=== PATIENT | male | born 1930 | race Caucasian/White ===

== ENCOUNTER → 2017-05-05 | Outpatient (CLI) | payer MEDICARE, OTHER ==
--- NOTE | 2017-05-05 16:00 | RADIOLOGY REPORT (SQ) ---
EXAM DESCRIPTION: KNEE RIGHT 2 VIEWS COMPLETED DATE/TIME: 05/05/2017 11:08 am REASON FOR STUDY: EFFUSION, RIGHT KNEE M25.461 EFFUSION, RIGHT KNEE COMPARISON: None. NUMBER OF VIEWS: Two views. TECHNIQUE: AP and lateral radiographic images acquired of the right knee. LIMITATIONS: None. FINDINGS: MINERALIZATION: Normal. BONES: No acute fracture or dislocation. No worrisome bone lesions. Hardware in the femur. Joint spa ce narrowing, most pronounced in the patellofemoral joint. JOINT: No effusion. No chondrocalcinosis. OTHER: No other significant finding. IMPRESSION: DEGENERATIVE CHANGES, PARTICULARLY IN THE PATELLOFEMORAL JOINT. NO ACUTE FINDINGS. TECHNICAL DOCUMENTATION: JOB ID: [id number] [employer]- All Rights Reserved
== END ==
LOC: OD 10:32
PROVIDERS: ATTEND Internal Medicine
DX: M25.461 Effusion, right knee (principal)

== ENCOUNTER → 2017-06-09 | Outpatient (CLI) | payer MEDICARE, OTHER ==
[2017-06-09 13:40] LABS: ANION GAP 9 (5-19); BLOOD UREA NITROGEN 21 mg/dL (7-20); C-REACTIVE PROTEIN 22.5 mg/L (<10.0); CALCIUM 8.9 mg/dL (8.4-10.2); CARBON DIOXIDE 19 mmol/L (22-30); CHLORIDE 111 mmol/L (98-107); GLUCOSE 95 mg/dL (75-110); POTASSIUM 4.6 mmol/L (3.6-5.0); SODIUM 139.4 mmol/L (137-145)
== END ==
LOC: OD 12:00
PROVIDERS: ATTEND Orthopaedic Surgery
DX: T84.53XD Infection and inflammatory reaction due to internal right knee prosthesis, subsequent encounter (principal)
CPT/HCPCS: 36415; 80048; 85652; 86140; 87070; 87075; 87077; 87205

== ENCOUNTER 2017-06-24 07:14 | Observation (INO) | payer MEDICARE, OTHER ==
[2017-06-17 11:40] LABS: APPEARANCE,URINE SLIGHTLY-CLOUDY; BILIRUBIN,URINE NEGATIVE (NEGATIVE); GLUCOSE, URINE NEGATIVE (NEGATIVE); KETONES,URINE NEGATIVE (NEGATIVE); LEUKOCYTE ESTERASE,URINE NEGATIVE (NEGATIVE); NITRITE,URINE NEGATIVE (NEGATIVE); PROTEIN,URINE NEGATIVE (NEGATIVE); URINE SPECIFIC GRAVITY 1.027
[2017-06-17 11:41] LABS: COLOR,URINE YELLOW
[2017-06-17 12:25] LABS: ABSOLUTE BASOPHILS # (AUTO) 0.1 10^3/uL (0.0-0.2); ABSOLUTE EOSINOPHILS # (AUTO) 0.6 10^3/uL (0.0-0.6); ABSOLUTE NEUT (AUTO) 8.4 10^3/uL (1.7-8.2); BASOPHILS % (AUTO) 0.5 % (0-2); EOSINOPHILS % (AUTO) 4.5 % (0-6); HEMATOCRIT 33.9 % (37.9-51.0); HEMOGLOBIN 10.8 g/dL (13.5-17.0); LYMPHOCYTES % (AUTO) 28.5 % (13-45); MEAN CORPUSCULAR HEMOGLOBIN 28.9 pg (27.0-33.4); MEAN CORPUSCULAR VOLUME 90 fl (80-97); PLATELET COUNT 198 10^3/uL (150-450); RED BLOOD COUNT 3.75 10^6/uL (4.35-5.55); RED CELL DISTRIBUTION WIDTH 15.8 % (11.5-14.0); SEGMENTED NEUTROPHILS % (AUTO) 59.5 % (42-78); TOTAL CELLS COUNTED % (AUTO) 100 %; WHITE BLOOD COUNT 14.2 10^3/uL (4.0-10.5)
[2017-06-17 12:40] LABS: ANION GAP 12 (5-19); BLOOD UREA NITROGEN 17 mg/dL (7-20); CARBON DIOXIDE 21 mmol/L (22-30); CHLORIDE 107 mmol/L (98-107); GLUCOSE 82 mg/dL (75-110); POTASSIUM 4.1 mmol/L (3.6-5.0); SODIUM 140.4 mmol/L (137-145)
--- NOTE | 2017-06-17 13:41 | RADIOLOGY REPORT (SQ) ---
EXAM DESCRIPTION: CHEST PA/LATERAL COMPLETED DATE/TIME: 06/17/2017 11:48 am REASON FOR STUDY: PRE OP COMPARISON: CT chest 09/18/2011 Chest films 07/13/2014, 10/01/2014, 12/15/2014 EXAM PARAMETERS: NUMBER OF VIEWS: two views TECHNIQUE: Digital Frontal and Lateral radiographic views of the chest acquired. RADIATION DOSE: NA LIMITATIONS: none FINDINGS: LUNGS AND PLEURA: No opacities, masses or pneumothorax. No pleural effusion. MEDIASTINUM AND HILAR STRUCTURES: No masses or contour abnormalities. HEART AND VASCULAR STRUCTURES: Mild cardiomegaly, stable. Tortuous uncoiled thoracic aorta. BONES: Osteoporotic without thoracic compression deformity HARDWARE: None in the chest. OTHER: No other significant finding. IMPRESSION: No acute findings TECHNICAL DOCUMENTATION: JOB ID: [id number]- All Rights Reserved Reading location - IP/workstation name: [email or web address]
--- NOTE | 2017-06-17 14:35 | EKG REPORT ---
SEVERITY:- ABNORMAL ECG - SINUS RHYTHM VENTRICULAR TRIGEMINY NONSPECIFIC IVCD WITH LAD : Confirmed by: Ronnie Powers MD 17-Jun-2017 14:34:43
[~2017-06-24 07:14] MED LIST: CEFAZOLIN SODIUM 2 GM in NORMAL SALINE 100 ML IV PRN; LACTATED RINGERS 1000 ML IV PRN; LIDOCAINE 0.5% INJ-PF (5 MG/ML) 50 ML SDV SUBCUT PRN
--- NOTE | 2017-06-24 09:31 | EKG REPORT ---
SEVERITY:- ABNORMAL ECG - SINUS RHYTHM MULTIPLE VENTRICULAR PREMATURE COMPLEXES FIRST DEGREE AV BLOCK PROBABLE INFERIOR INFARCT, AGE INDETERMINATE : Confirmed by: Monae Jason 24-Jun-2017 09:31:16
[2017-06-24] MEDS ORDERED: MIDAZOLAM 2 MG/2 ML INJ ONE (09:43)
[2017-06-24] MEDS ORDERED: FENTANYL CITRATE INJ/PF 100 MCG/2 ML AMPUL ONE (09:43)
[2017-06-24] MEDS ORDERED: PROPOFOL INJ 200 MG/20 ML VIAL IV ONE (09:43)
[2017-06-24] MEDS ORDERED: TETRACAINE HCL/PF 20MG/2ML AMPULE (SPINAL) ONE (09:45)
[2017-06-24] MEDS ORDERED: BACITRACIN INJ 50,000 UNIT VIAL ONE (09:46)
[2017-06-24] MEDS ORDERED: EPHEDRINE SULFATE INJ 50 MG/1 ML AMPULE ONE (10:01)
[2017-06-24] MEDS ORDERED: OXYCODONE-ACETAMINOPHEN 5-325 MG TABLET PO PRN ×2 (10:14)
[2017-06-24] MEDS ORDERED: DIPHENHYDRAMINE HCL 50 MG/ML VIAL IV PRN (10:14)
[2017-06-24] MEDS ORDERED: PROMETHAZINE HCL INJ 25 MG/1 ML VIAL IV PRN ×2 (10:14)
[2017-06-24] MEDS ORDERED: FENTANYL CITRATE INJ/PF 100 MCG/2 ML AMPUL IV PRN ×3 (10:14)
[2017-06-24] MEDS ORDERED: MEPERIDINE HCL/PF INJ 25 MG/1 ML DISP.SYRIN IV PRN (10:14)
--- NOTE | 2017-06-24 10:34 | Operative Report ---
Operative Report DATE OF SURGERY: 06/24/17 PREOPERATIVE DIAGNOSIS: Right distal thigh abscess OPERATION: Irrigation debridement right distal thigh abscess SURGEON: Nanette ANESTHESIA: Spinal TISSUE REMOVED OR ALTERED: Cultures 2 to microbiology. Tissue 1 to pathology ESTIMATED BLOOD LOSS: Minimal PROCEDURE: With the patient supine and operative table the right lower extremities prepped and draped in sterile fashion. Limb was elevated for exsanguination tourniquet inflated 280 torr. An elliptical incision is made around a sinus tract which is superior and lateral to the proximal pole of the patella. It is taken down through the iliotibial band into the vastus lateralis muscle. Upon doing so there is a large amount of serous fluid which emanates from the wound. This is evacuated. The wound was explored down to the hamstring tendon. It is extrasynovial. The wound is then meticulously debrided and irrigated with bulb lavage containing bacitracin. The tourniquet is deflated. Hemostasis obtained. The wound was packed with iodoform gauze. Sterile compressive dressings applied and the patient's return to the PACU in satisfactory condition.
[2017-06-24] MEDS ORDERED: ONDANSETRON 4 MG TAB.RAPDIS PO PRN (11:16)
--- NOTE | 2017-06-24 19:06 | XCELERA REPORT ---
[address] [address] Transthoracic Echocardiogram Report Name: SARMAD DURON Age: 86 yrs Gender: Male : 1930 Patient Status: Outpatient Patient Location: [address] [place], [place] [address] Study Date: 06/24/2017 02:17 PM Height: 69 in Weight: 200 lb BSA: 2.1 m2 Procedure: A complete two-dimensional transthoracic echocardiogram was performed (2D, M-mode, spectral and color flow Doppler). The study was technically difficult with many images being suboptimal in quality. Reason For Study: POST OP Ordering Physician: KAILASH MCELROY Performed By: Jeri Bustos Interpretation Summary The left ventricular ejection fraction is normal. Doppler measurements suggest pseudonormalized left ventricular relaxation, which is associated with grade II/IV or mild to moderate diastolic dysfunction There is mild concentric left ventricular hypertrophy. The left ventricle is grossly normal size. Wall motion cannot be accurately commented on, but no definite regional wall motion abnormalities noted. The right ventricle is mildly dilated. The right ventricle appears to be hypertrophied The right ventricular systolic function is normal. The left atrial size is normal. The right atrium is mildly dilated. There is no mitral regurgitation noted. There is no mitral valve stenosis. No aortic regurgitation is present. There is no aortic valve stenosis There is a trace or physiologic amount of tricuspid regurgitation Tricuspid regurgitation jet envelope not well defined to measure RV systolic pressure accurately. The aortic root is not well visualized but is probably normal size. The inferior vena cava appeared normal and decreased > 50% with respiration (RAP 5-10 mmHg) There is no pericardial effusion. MMode/2D Measurements & Calculations RVDd: 3.6 cm LVIDd: 5.0 cm FS: 28.4 % Ao root diam: 3.0 cm IVSd: 1.2 cm LVIDs: 3.6 cm EDV(Teich): 119.3 ml LVPWd: 1.2 cm ESV(Teich): 54.1 ml Ao root area: 7.3 cm2 EF(Teich): 54.6 % Doppler Measurements & Calculations MV E max marlene: MV dec slope: Ao V2 max: LV V1 max P.8 cm/sec 173.2 cm/sec 2.8 mmHg MV A max marlene: 260.0 cm/sec2 Ao max PG: LV V1 max: 115.1 cm/sec MV dec time: 12.0 mmHg 84.0 cm/sec MV E/A: 0.76 0.34 sec PA V2 max: TR max marlene: 100.1 cm/sec 221.8 cm/sec PA max P.0 mmHg TR max P.8 mmHg Left Ventricle The left ventricle is grossly normal size. There is mild concentric left ventricular hypertrophy. The left ventricular ejection fraction is normal. Doppler measurements suggest pseudonormalized left ventricular relaxation, which is associated with grade II/IV or mild to moderate diastolic dysfunction. Wall motion cannot be accurately commented on, but no definite regional wall motion abnormalities noted. Right Ventricle The right ventricle is mildly dilated. The right ventricle appears to be hypertrophied. The right ventricular systolic function is normal. Atria The right atrium is mildly dilated. The left atrial size is normal. Interarterial septum not well visualized and not well dopplered. Cannot comment on ASD/PFO presence. Mitral Valve The mitral valve is grossly normal. There is no mitral valve stenosis. There is no mitral regurgitation noted. Aortic Valve The aortic valve is not well visualized secondary to technical limitations. There is no aortic valve stenosis. No aortic regurgitation is present. Tricuspid Valve The tricuspid valve is not well visualized, but is grossly normal. There is no tricuspid stenosis. There is a trace or physiologic amount of tricuspid regurgitation. Tricuspid regurgitation jet envelope not well defined to measure RV systolic pressure accurately. Pulmonic Valve The pulmonic valve is not well visualized. Great Vessels The aortic root is not well visualized but is probably normal size. The inferior vena cava appeared normal and decreased > 50% with respiration (RAP 5-10 mmHg). Effusions There is no pericardial effusion. : KAILASH MCELROY > Monae Jason
[2017-06-24] MEDS ORDERED: ALBUTEROL SULFATE 0.083% NEB 2.5 MG/3 ML AMPUL NEB PRN (20:41)
[2017-06-24] MEDS ORDERED: (PENDING PHARMACY ID) (Cyanocobalamin (Vitamin B-12) [Vitamin B12] 1,000 MCG) INJ SCH (20:45)
[2017-06-24] MEDS: OXYCODONE HCL IR 5 MG TABLET PO PRN (21:43)
[2017-06-24] MEDS ORDERED: SIMVASTATIN 40 MG TABLET PO SCH (22:00)
[2017-06-24] MEDS ORDERED: LATANOPROST 0.005% OPH SOLN 2.5 ML OU SCH (22:00)
[2017-06-24] MEDS: FLUTICASONE/SALMETEROL DISKUS 250-50 MCG/DOSE IH SCH (22:42)
[2017-06-24] MEDS: METOPROLOL SUCCINATE 50 MG TAB.SR.24H PO SCH (22:58)
[2017-06-24] MEDS: ASPIRIN/DIPYRIDAMOLE 25-200 MG 1 CAP.SR CPMP.12HR PO SCH (22:58)
--- NOTE | 2017-06-24 23:08 | EKG REPORT ---
SEVERITY:- ABNORMAL ECG - SINUS RHYTHM WITH 1ST DEGREE HEART BLOCK BORDERLINE IVCD WITH LAD INFERIOR INFARCT, AGE INDETERMINATE LATERAL LEADS ARE ALSO INVOLVED BORDERLINE PROLONGED QT INTERVAL : Confirmed by: Monae Jason 24-Jun-2017 23:06:53
[2017-06-24] MEDS: MECLIZINE HCL 25 MG TABLET PO SCH (23:51)
[2017-06-24] MEDS: TRAMADOL HCL 50 MG TABLET PO SCH (23:53)
[2017-06-25] MEDS: TRAMADOL HCL 50 MG TABLET PO SCH ×2 (06:58→12:53)
[2017-06-25] MEDS: MECLIZINE HCL 25 MG TABLET PO SCH ×2 (06:58→12:53)
[2017-06-25] MEDS: OXYCODONE HCL IR 5 MG TABLET PO PRN (08:31)
[2017-06-25] MEDS ORDERED: TIOTROPIUM BROMIDE DPI 5 CAP/KIT (18 MCG/CAP) IH SCH (10:00)
[2017-06-25] MEDS ORDERED: LEVOFLOXACIN 500 MG TABLET PO SCH (10:00)
[2017-06-25] MEDS: ASPIRIN/DIPYRIDAMOLE 25-200 MG 1 CAP.SR CPMP.12HR PO SCH (10:17)
[2017-06-25] MEDS: METOPROLOL SUCCINATE 50 MG TAB.SR.24H PO SCH (10:20)
[2017-06-25] MEDS: FLUTICASONE/SALMETEROL DISKUS 250-50 MCG/DOSE IH SCH (10:20)
--- NOTE | 2017-06-25 13:04 | PDOC CONSULTATION ---
Consultation Consult Date: 06/24/17 Attending physician:: SHIREEN SEWELL Consult reason:: Increased ventricular ectopies History of Present Illness Admission Date/PCP: BROCK GRAVES MD Patient complains of: Status post knee surgery History of Present Illness: SARMAD DURON is a 86 year old male, who is status post knee surgery. In the PACU unit, patient was noted to have significantly increased ventricular ectopy from baseline. Patient however was noted to be asymptomatic. Patient had just undergone knee surgery and was recovering in the PACU unit. On questioning patient denied any chest pain, shortness of breath. Patient denied any sustained palpitations, syncope, near syncope. Patient denied any prior history of myocardial infarction, angina, CHF or any other significant cardiac problems. A 2D echocardiogram which was performed was reviewed. It showed normal LVEF, there is some enlargement of the right ventricle. No significant valvular stenosis was noted. When I saw the patient, on the floor at around 8 PM, ventricular ectopic activities had decreased. Past Medical History Cardiac Medical History: Reports: Hyperlipidema, Hypertension Denies: Coronary Artery Disease, Myocardial Infarction Pulmonary Medical History: Reports: Bronchitis, Chronic Obstructive Pulmonary Disease (COPD), Pneumonia - X4 Denies: Asthma, Tuberculosis Neurological Medical History: Denies: Seizures Malignancy Medical History: Reports: Skin Cancer Musculoskeltal Medical History: Reports: Arthritis - LEFT ANKLE Psychiatric Medical History: Reports: Depression - When drinking Hematology: Denies: Anemia Past Surgical History Past Surgical History: Reports: Orthopedic Surgery Denies: Pacemaker Social History Information Source: Patient Frequency of Alcohol Use: None Hx Recreational Drug Use: No Hx Prescription Drug Abuse: No - Advance Directive Resuscitation Status: Full Code Surrogate healthcare decision maker:: Patient's is the surrogate decision-maker Family History Family History: Reviewed & Not Pertinent Parental Family History Reviewed: Yes Children Family History Reviewed: Yes Sibling(s) Family History Reviewed.: Yes Medication/Allergy Home Medications: Metoprolol Succinate [Toprol Xl 50 mg Tab.sr] 100 mg PO Q12 09/18/11 Simvastatin [Zocor 40 mg Tablet] 40 mg PO QHS 09/18/11 Latanoprost [Xalatan 0.005% Oph Soln 2.5 ml] 1 drop BTH_EYE QHS 09/22/11 Fluticasone/Salmeterol [Advair 250-50 Diskus 28 dose] 1 inh IH Q12H 09/27/14 Tiotropium [place] [Spiriva Handihaler 18 mcg/dose (30 Dose)] 1 cap IH DAILY 11/04 Albuterol Sulfate [Albuterol Sulfate 2.5mg/3 mL] 1 vial IH Q4 PRN 06/17/17 Aspirin/Dipyridamole [Aggrenox 25 mg/200 mg Capsule SA] 1 cap.sr PO Q12 Cyanocobalamin (Vitamin B-12) [Vitamin B12] 1,000 mcg INJ .MONTHLY 06/17/17 Doxazosin Mesylate 4 mg PO QPM 06/17/17 Levofloxacin 500 mg PO DAILY 06/17/17 Meclizine HCl 25 mg PO Q6 06/17/17 Tramadol HCl [Ultram] 50 mg PO Q6 06/17/17 Allergies/Adverse Reactions: iodine [Iodine] Allergy (Mild, Verified 09/27/14 17:09) Shellfish * [Shellfish] Allergy (Mild, Verified 09/27/14 17:09) Review of Systems Review of Systems: Please see history of present illness and past medical history as wall. Constitutional: No fever or chills reported. Head : No recent chronic headaches, recent head injury. Eyes: No recent eye pain, diplopia, redness, discharge, acute visual changes. Ears: No recent chronic ear pain, acute hearing loss, ear discharge. Oral cavity: No recent ulcerations, bleeding, oral cavity discomfort. Neck: No recent acute neck pain reported. Hematologic: No recent easy bruising or bleeding or hematologic malignancy reported. Lymphatic: No recent lymphatic malignancy, chronic lymphadenopathy reported yet Cardiovascular system review: See history of present illness. Respiratory system review: No recent chronic cough, hemoptysis, blood clots in the lungs reported. Mild Shortness of breath on exertion Gastrointestinal system review: Negative for any recent acute or chronic abdominal pain, hematemesis, melena, recent change in bowel habits. Genitourinary system review: No recent acute or chronic hematuria, flank pain, UTI etc. reported. Skin system review: Negative for any recent abnormal bruising, no rash, no pruritus reported. Neurologic: No prior history of strokes, mini strokes, seizure disorder. Psychologic: No history of major psychosis or major depression reported. Musculoskeletal: Minor aches and pains reported. No acute joint swelling reported. Patient is just status post knee surgery and some chronic knee joint swelling. Endocrine: No recent polyuria, polydipsia, recent heat or cold intolerance. Physical Exam Vital Signs: Temp Pulse Resp BP Pulse Ox 98.2 F 61 12 135/56 H 96 06/24/17 17:35 06/24/17 17:35 06/24/17 17:35 06/24/17 17:35 06/24/17 17:35 Intake & Output 06/23/17 06/24/17 06/25/17 06:59 06:59 06:59 Intake Total 2059 Output Total 10 Balance 2049 Weight 90.72 kg Exam: GENERAL: well-nourished and in no acute distress. Alert and oriented x3 HEAD: Atraumatic, normocephalic. EYES: Pupils equal round and reactive to light, extraocular movements intact, sclera anicteric, conjunctiva are normal. ENT: TMs normal, nares patent, oropharynx clear without exudates. Moist mucous membranes. No oral ulcerations or bleeding gums noted NECK: supple without lymphadenopathy. Trachea is central. No cervical or axillary lymphadenopathy noted. Carotids are 2+, JVD WNL LUNGS: Respiration seems nonlabored, no significant accessory muscle action noted. Breath sounds clear to auscultation bilaterally and equal noted. No wheezes rales or rhonchi noted. No significant dullness noted on percussion. CHEST: Palpation of the chest wall shows no significant chest wall tenderness. No other significant abnormalities noted. 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 ABDOMEN: Soft, no significant tenderness appreciated, normoactive bowel sounds. No guarding, no rebound. No rigidity noted . No masses appreciated. EXTREMITIES: Pedal pulses are 1-2+, no calf tenderness noted. No clubbing or cyanosis. negative pedal edema noted NEUROLOGICAL: Focused neurological exam showed no significant neurologic deficit. Normal speech, no focal weakness appreciated. PSYCH: Normal mood, normal affect. Judgment and insight within normal limits. SKIN: No significant ecchymosis, skin is noted to be warm. MUSCULOSKELETAL EXAM: No significant acute joint swelling noted. Postsurgical changes noted left knee. Results Laboratory Results: 06/17/17 11:21 06/17/17 11:21 06/24/17 07:47 Magnesium 1.7 EKG Comments: Shows sinus rhythm, no acute ST-T wave changes noted. Cannot rule out inferior infarct, old Impressions: Chest X-Ray 06/17/17 11:33 IMPRESSION: No acute findings Assessment & Plan - Diagnosis (1) Cardiac dysrhythmia, unspecified Qualifiers: Arrhythmia type: unspecified cardiac arrhythmia Qualified Code(s): I49.9 - Cardiac arrhythmia, unspecified Is this a current diagnosis for this admission?: Yes (2) Abnormal EKG Is this a current diagnosis for this admission?: Yes (3) Abnormal echocardiogram Is this a current diagnosis for this admission?: Yes (4) Chronic obstructive pulmonary disease Qualifiers: Emphysema type: unspecified Is this a current diagnosis for this admission?: Yes (5) Hypertension Qualifiers: Hypertension type: essential hypertension Qualified Code(s): I10 - Essential (primary) hypertension Is this a current diagnosis for this admission?: Yes (6) Hyperlipidemia Qualifiers: Hyperlipidemia type: unspecified Qualified Code(s): E78.5 - Hyperlipidemia , unspecified Is this a current diagnosis for this admission?: Yes - Notes Notes: Cardiac dysrhythmia: Patient was noted to have frequent ventricular ectopy in the recovery room. However they had subsided spontaneously. A 12-lead EKG obtained postop did not show any significant cardiac dysrhythmia. At this point recommend maintaining electrolytes within normal limit. A 2D echocardiogram shows normal LVEF which puts patient at low risk category. If patient remains fine overnight, could be discharged in the morning with a follow -up appointment with me. Abnormal electrocardiogram: Possible prior inferior myocardial infarction, old but this finding could well be from left axis deviation and left anterior hemiblock. Discussed that he might benefit from a nuclear stress testing. This however can be scheduled as an outpatient. Abnormal echocardiogram: Overall LVEF is within normal limit RV enlargement is noted which is felt to be related to COPD and emphysema diagnosis. COPD: Currently stable continue current therapy. Hypertension: Blood pressure goal should be 150/90 or less in this elderly patient. Avoid any hypotension. Dyslipidemia: Recommend statin therapy with LDL goal less than 100. - Time Time Spent: 30 to 50 Minutes - CODE STATUS was discussed, patient remains full code. Surrogate decision-maker Patient spouse. Multiple medical problems were addressed. More than 50% of the time spent coordinating care, discussing management plans with involved caregivers. Management plans discussed with involved personnels. Medical decision making was of moderate to high complexity , patient's has multiple comorbidities. Medications reviewed and adjusted accordingly: Yes
--- NOTE | 2017-06-25 13:08 | PDOC PROGRESS REPORT ---
Subjective Progress Note for:: 06/25/17 Subjective:: Postop knee surgery, recuperating well. Patient expected to be discharged later on today. Telemetry strips reviewed. 2D echo results reviewed with the patient. Also discussed with patient's immediate family members. Reason For Visit: RIGHT KNEE I&D Physical Exam Vital Signs: Temp Pulse Resp BP Pulse Ox 98.6 F 72 22 H 136/68 H 93 06/25/17 12:19 06/25/17 12:19 06/25/17 12:19 06/25/17 12:19 06/25/17 12:19 Intake & Output 06/24/17 06/25/17 06/26/17 06:59 06:59 06:59 Intake Total 2480 Output Total 810 Balance 1670 Weight 94.2 kg Exam: GENERAL: well-nourished and in no acute distress. Alert and oriented x3 HEAD: Atraumatic, normocephalic. EYES: Pupils equal round and reactive to light, extraocular movements intact, sclera anicteric, conjunctiva are normal. ENT: TMs normal, nares patent, oropharynx clear without exudates. Moist mucous membranes. No oral ulcerations or bleeding gums noted NECK: supple without lymphadenopathy. Trachea is central. No cervical or axillary lymphadenopathy noted. Carotids are 2+, JVD WNL LUNGS: Respiration seems nonlabored, no significant accessory muscle action noted. Breath sounds clear to auscultation bilaterally and equal noted. No wheezes rales or rhonchi noted. No significant dullness noted on percussion. CHEST: Palpation of the chest wall shows no significant chest wall tenderness. No other significant abnormalities noted. 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 ABDOMEN: Soft, no significant tenderness appreciated, normoactive bowel sounds. No guarding, no rebound. No rigidity noted . No masses appreciated. EXTREMITIES: Pedal pulses are 1-2+, no calf tenderness noted. No clubbing or cyanosis. negative pedal edema noted NEUROLOGICAL: Focused neurological exam showed no significant neurologic deficit. Normal speech, no focal weakness appreciated. PSYCH: Normal mood, normal affect. Judgment and insight within normal limits. SKIN: No significant ecchymosis, skin is noted to be warm. MUSCULOSKELETAL EXAM: No significant acute joint swelling noted. Postsurgical changes noted right thigh and knee. Results Laboratory Results: 06/17/17 11:21 06/17/17 11:21 EKG Comments: Telemetry strips shows sinus rhythm without any sustained tacky or bradycardia arrhythmias. Twelve-lead EKG obtained this morning showed no significant ST-T wave changes. Impressions: Chest X-Ray 06/17/17 11:33 IMPRESSION: No acute findings Assessment & Plan - Diagnosis (1) Cardiac dysrhythmia, unspecified Qualifiers: Arrhythmia type: unspecified cardiac arrhythmia Qualified Code(s): I49.9 - Cardiac arrhythmia, unspecified Is this a current diagnosis for this admission?: Yes (2) Abnormal EKG Is this a current diagnosis for this admission?: Yes (3) Abnormal echocardiogram Is this a current diagnosis for this admission?: Yes (4) Chronic obstructive pulmonary disease Qualifiers: Emphysema type: unspecified Is this a current diagnosis for this admission?: Yes (5) Hypertension Qualifiers: Hypertension type: essential hypertension Qualified Code(s): I10 - Essential (primary) hypertension Is this a current diagnosis for this admission?: Yes (6) Hyperlipidemia Qualifiers: Hyperlipidemia type: unspecified Qualified Code(s): E78.5 - Hyperlipidemia , unspecified Is this a current diagnosis for this admission?: Yes - Notes Notes: Patient has done reasonably well postop and is expected to be discharged. 2D echocardiogram, twelve-lead EKG findings, cardiac rhythm monitor findings were discussed with the patient. Have recommended that patient follow-up with me for an stress testing to look for any ischemia. However it was also felt that we could just continue as it is, as patient noted to be relatively asymptomatic. The decision was left to the patient and the family. - Time Time with patient: 15-25 minutes - CODE STATUS was discussed, patient remains full code. Surrogate decision-maker unchanged. Multiple medical problems were addressed. More than 50% of the time spent coordinating care, discussing management plans with involved caregivers. Management plans discussed with involved personnels. Medical decision making was of moderate to high complexity , patient's has multiple comorbidities. Medications reviewed and adjusted accordingly: Yes
[2017-06-25 13:19] VITALS: BP 96/42
[2017-06-25] MEDS ORDERED: DOXAZOSIN MESYLATE 4 MG TABLET PO SCH (18:00)
[2017-07-23] MEDS ORDERED: CYANOCOBALAMIN (VITAMIN B-12) INJ 1000 MCG/1 ML VIAL IM SCH (08:00)
== END 2017-06-25 13:21 | disposition home health service (06) ==
LOC: 4S 07:14 → OROUT 07:14 → EDSTATUS 10:30 → OROUT 14:42 → 4S 14:42 → OROUT 06-25 13:21
PROVIDERS: ADMIT Orthopaedic Surgery; ATTEND Orthopaedic Surgery
PROC: 0KBQ0ZZ Excision of Right Upper Leg Muscle, Open Approach (ICD-10-PCS; principal; 2017-06-24 09:30)
DX: T84.53XD Infection and inflammatory reaction due to internal right knee prosthesis, subsequent encounter (principal); R94.31 Abnormal electrocardiogram [ECG] [EKG]; I49.9 Cardiac arrhythmia, unspecified; I10 Essential (primary) hypertension; I25.10 Atherosclerotic heart disease of native coronary artery without angina pectoris; I25.2 Old myocardial infarction; J44.9 Chronic obstructive pulmonary disease, unspecified; E78.5 Hyperlipidemia, unspecified
CPT/HCPCS: 93005 ×2; 36415 ×2; 87070; 87205; 83735; 85025; 87075; 80048; 81001; 88305 ×2; 93306; 71046; 93010 ×2; 11043; G0378 ×2; G0379; A9270 ×8; J2250; J3490 ×6; J0690; J3010; J2704; 300

== ENCOUNTER 2017-08-12 09:00 | Inpatient (IN) | payer MEDICARE, OTHER ==
[2017-08-10 09:15] LABS: HEMATOCRIT 34.3 % (37.9-51.0); HEMOGLOBIN 11.2 g/dL (13.5-17.0); MEAN CORPUSCULAR HEMOGLOBIN 29.6 pg (27.0-33.4); MEAN CORPUSCULAR HGB CONC 32.5 g/dL (32.0-36.0); MEAN CORPUSCULAR VOLUME 91 fl (80-97); PLATELET COUNT 287 10^3/uL (150-450); RED BLOOD COUNT 3.77 10^6/uL (4.35-5.55); RED CELL DISTRIBUTION WIDTH 14.3 % (11.5-14.0); WHITE BLOOD COUNT 15.4 10^3/uL (4.0-10.5)
[2017-08-10 09:34] LABS: ANION GAP 14 (5-19); BLOOD UREA NITROGEN 15 mg/dL (7-20); CALCIUM 9.2 mg/dL (8.4-10.2); CARBON DIOXIDE 23 mmol/L (22-30); CHLORIDE 105 mmol/L (98-107); GLUCOSE 93 mg/dL (75-110); POTASSIUM 4.4 mmol/L (3.6-5.0); SODIUM 141.7 mmol/L (137-145)
[2017-08-10 09:53] LABS: APPEARANCE,URINE SLIGHTLY-CLOUDY; BILIRUBIN,URINE NEGATIVE (NEGATIVE); GLUCOSE, URINE NEGATIVE (NEGATIVE); KETONES,URINE NEGATIVE (NEGATIVE); LEUKOCYTE ESTERASE,URINE LARGE (NEGATIVE); NITRITE,URINE NEGATIVE (NEGATIVE); PROTEIN,URINE NEGATIVE (NEGATIVE); URINE SPECIFIC GRAVITY 1.018; UROBILINOGEN,URINE NEGATIVE mg/dL (<2.0)
[2017-08-10 09:54] LABS: COLOR,URINE YELLOW
--- NOTE | 2017-08-10 10:14 | RADIOLOGY REPORT (SQ) ---
EXAM DESCRIPTION: CHEST PA/LATERAL COMPLETED DATE/TIME: 08/10/2017 10:00 am REASON FOR STUDY: PRE OP M71.061 ABSCESS OF BURSA, RIGHT KNEE Z79.01 LONGTERM (CURRENT) USE OF AN TICOAGULANTS COMPARISON: 06/17/2017 NUMBER OF VIEWS: Two view. TECHNIQUE: Frontal and lateral radiographic views of the chest acquired. LIMITATIONS: None. FINDINGS: LUNGS AND PLEURA: No opacities, masses or pneumothorax. No pleural effusion. Attenuated bl ood vessels and flattened lucía-diaphragms. MEDIASTINUM AND HILAR STRUCTURES: No masses. No contour abnormalities. HEART AND VASCULAR STRUCTURES: Heart normal in size and contour. No evidence for failure. BONES: No acute findings. HARDWARE: None in the chest. OTHER: No other significant finding. IMPRESSION: COPD. NO ACUTE RADIOGRAPHIC FINDING IN THE CHEST. TECHNICAL DOCUMENTATION: JOB ID: [id number] [employer]- All Rights Reserved Reading location - IP/workstation name: [email or web address]
--- NOTE | 2017-08-10 12:51 | EKG REPORT ---
SEVERITY:- ABNORMAL ECG - SINUS RHYTHM PROBABLE INFERIOR INFARCT, AGE INDETERMINATE : Confirmed by: Ronnie Powers MD 10-Aug-2017 12:51:28
[~2017-08-12 09:00] MED LIST changes: -CEFAZOLIN SODIUM 2 GM in NORMAL SALINE 100 ML IV PRN
[2017-08-19 08:49] LABS: INTERNATIONAL RATION (INR) 1.05; PROTHROMBIN TIME 14.2 SEC (11.4-15.4)
[2017-08-19] MEDS ORDERED: BUPIVACAINE HCL 0.5%-EPI 1:200000 INJ/PF 30 ML VIAL ONE (09:18)
[2017-08-19] MEDS ORDERED: FENTANYL CITRATE INJ/PF 100 MCG/2 ML AMPUL ONE (09:55)
[2017-08-19] MEDS ORDERED: MIDAZOLAM 2 MG/2 ML INJ ONE (09:55)
[2017-08-19] MEDS ORDERED: EPHEDRINE SULFATE INJ 50 MG/1 ML AMPULE ONE (09:55)
[2017-08-19] MEDS ORDERED: PROPOFOL INJ 200 MG/20 ML VIAL IV ONE (09:56)
[2017-08-19] MEDS ORDERED: TETRACAINE HCL/PF 20MG/2ML AMPULE (SPINAL) ONE (09:57)
[2017-08-19] MEDS ORDERED: BACITRACIN INJ 50,000 UNIT VIAL ONE (09:57)
[2017-08-19] MEDS ORDERED: CEFAZOLIN INJ 1 GM VIAL ONE (10:26)
[2017-08-19] MEDS ORDERED: FENTANYL CITRATE INJ/PF 100 MCG/2 ML AMPUL IV PRN ×2 (10:57)
[2017-08-19] MEDS ORDERED: DIPHENHYDRAMINE HCL 50 MG/ML VIAL IV PRN (10:57)
[2017-08-19] MEDS ORDERED: PROMETHAZINE HCL INJ 25 MG/1 ML VIAL IV PRN (10:57)
[2017-08-19] MEDS ORDERED: RINGERS SOLUTION,LACTATED 1,000 ML IV PRN (11:26)
[2017-08-19] MEDS ORDERED: MORPHINE SULFATE 10 MG/ML INJ IV PRN (11:29)
[2017-08-19] MEDS ORDERED: OXYCODONE HCL IR 5 MG TABLET PO PRN (11:30)
[2017-08-19] MEDS ORDERED: ONDANSETRON 4 MG TAB.RAPDIS SL PRN (11:32)
[2017-08-19] MEDS ORDERED: LIDOCAINE 2% INJ-PF (20 MG/ML) 2 ML AMPUL ONE (12:31)
[2017-08-19] MEDS ORDERED: ONDANSETRON HCL INJ/PF 4 MG/2 ML SDV ONE (12:31)
--- NOTE | 2017-08-19 15:48 | RADIOLOGY REPORT (SQ) ---
EXAM DESCRIPTION: NO CHG FLUORO COMPLETE DATE/TIME: 08/19/2017 2:03 pm REASON FOR STUDY: HARDWARE REMOVAL RT HIP IN [place] M71.061 ABSCESS OF BURSA, RIGHT KNEE Z79.01 LONG T ERM (CURRENT) USE OF ANTICOAGULANTS FINDINGS: Please see combined report for performance of procedure and radiologic supervision and int erpretation. IMPRESSION: Please see combined report for performance of procedure and radiologic supervision and i nterpretation. Reading location - IP/workstation name: [email or web address]
--- NOTE | 2017-08-19 15:48 | RADIOLOGY REPORT (SQ) ---
EXAM DESCRIPTION: HIP IN OPERATING RM COMPLETED DATE/TIME: 08/19/2017 2:03 pm REASON FOR STUDY: HARDWARE REMOVAL RT HIP IN OR M71.061 ABSCESS OF BURSA, RIGHT KNEE Z79.01 LONG T ERM (CURRENT) USE OF ANTICOAGULANTS COMPARISON: Right hip films dated April 2015 FLUOROSCOPY TIME: 0.5 minutes 7 images saved to PACS. TECHNIQUE: Intra-operative images acquired during surgical procedure to evaluate progress. NUMBER OF IMAGES: 7 image LIMITATIONS: None. FINDINGS: Fluoroscopic images were obtained during hardware removal from the right hip. Please refe r to the surgeon's operative report for additional information. IMPRESSION: IMAGE(S) OBTAINED DURING PROCEDURE. COMMENT: Quality ID [id number]: Final reports for procedures using fluoroscopy that document radiation exp osure indices, or exposure time and number of fluorographic images (if radiation exposure indices are not available) Please consult full operative report of the attending physician for description of the procedure. TECHNICAL DOCUMENTATION: JOB ID: [id number] [employer]- All Rights Reserved Reading location - IP/workstation name: [email or web address]
[2017-08-19] MEDS: ACETAMINOPHEN 325 MG TABLET PO PRN ×2 (16:41→21:09)
[2017-08-19] MEDS: TRAMADOL HCL 50 MG TABLET PO PRN (17:54)
[2017-08-19] MEDS: CIPROFLOXACIN HCL 750 MG TABLET PO SCH (21:09)
[2017-08-20] MEDS: TRAMADOL HCL 50 MG TABLET PO PRN ×3 (05:08→18:49)
--- NOTE | 2017-08-20 06:28 | PDOC PROGRESS REPORT ---
Subjective Progress Note for:: 08/20/17 Reason For Visit: M71.061 ABSCESS OF BURSA, RIGHT KNEE 86-year-old white male status post removal of a right cephalo-medullary nail yesterday for suspected periprosthetic infection. Patient complaining of pain overnight. Physical Exam Vital Signs: Temp Pulse Resp BP Pulse Ox 37.3 C 70 16 136/57 H 97 08/19/17 18:00 08/19/17 18:00 08/19/17 18:00 08/19/17 18:00 08/19/17 18:00 Intake & Output 08/18/17 08/19/17 08/20/17 06:59 06:59 06:59 Intake Total 8621 Output Total 6425 Balance 2196 Weight 91 kg General appearance: PRESENT: no acute distress, mild distress Head exam: PRESENT: normocephalic Respiratory exam: PRESENT: unlabored Cardiovascular exam: PRESENT: RRR Pulses: PRESENT: +1 pedal pulses bilateral Vascular exam: PRESENT: normal capillary refill GI/Abdominal exam: PRESENT: soft Rectal exam: PRESENT: deferred Extremities exam: PRESENT: other - Some drainage from right lower extremity dressings Neurological exam: PRESENT: alert, awake, oriented to person, oriented to place , oriented to time, oriented to situation. ABSENT: motor sensory deficit Psychiatric exam: PRESENT: appropriate affect, normal mood. ABSENT: homicidal ideation, suicidal ideation Skin exam: PRESENT: dry, intact, warm. ABSENT: cyanosis, rash Results Laboratory Results: 08/10/17 08:22 08/10/17 08:22 Impressions: Chest X-Ray 08/10/17 09:35 IMPRESSION: COPD. NO ACUTE RADIOGRAPHIC FINDING IN THE CHEST. Fluoroscopy 08/19/17 00:00 IMPRESSION: Please see combined report for performance of procedure and radiologic supervision and interpretation. Hip X-Ray 08/19/17 00:00 IMPRESSION: IMAGE(S) OBTAINED DURING PROCEDURE. Status: Imported from PACS Assessment & Plan - Diagnosis (1) Abscess of right thigh Is this a current diagnosis for this admission?: Yes Plan: 86-year-old white male status post removal of a right cephalo-medullary nail yesterday. Intraoperative Gram stains demonstrates red blood cells and polys. Cultures no growth so far. Patient on empiric Cipro floxacillin. Plan will be mobilized with physical therapy on a touchdown weightbearing restriction. Analgesic medication which has been relatively light at the patient's request will be increased to Vicodin. - Time Time Spent with patient: 15-24 minutes - Plan Summary Plan Summary: Anticipate patient will be discharged home with home health services once functional condition permits
[2017-08-20 06:42] LABS: HEMATOCRIT 31.1 % (37.9-51.0); HEMOGLOBIN 10.4 g/dL (13.5-17.0); MEAN CORPUSCULAR HEMOGLOBIN 30.3 pg (27.0-33.4); MEAN CORPUSCULAR HGB CONC 33.4 g/dL (32.0-36.0); MEAN CORPUSCULAR VOLUME 91 fl (80-97); PLATELET COUNT 171 10^3/uL (150-450); RED BLOOD COUNT 3.43 10^6/uL (4.35-5.55); RED CELL DISTRIBUTION WIDTH 14.2 % (11.5-14.0); WHITE BLOOD COUNT 10.9 10^3/uL (4.0-10.5)
[2017-08-20 07:06] LABS: ANION GAP 7 (5-19); BLOOD UREA NITROGEN 18 mg/dL (7-20); C-REACTIVE PROTEIN 39.5 mg/L (<10.0); CALCIUM 8.9 mg/dL (8.4-10.2); CARBON DIOXIDE 23 mmol/L (22-30); CHLORIDE 108 mmol/L (98-107); GLUCOSE 97 mg/dL (75-110); POTASSIUM 4.9 mmol/L (3.6-5.0); SODIUM 138.1 mmol/L (137-145)
[2017-08-20 07:20] LABS: ERYTHROCYTE SEDIMENTATION RATE 81 mm/hr (0-20)
[2017-08-20] MEDS: HYDROCODONE/ACETAMINOPHEN 5-325 MG TABLET PO PRN ×2 (07:37→16:34)
[2017-08-20] MEDS: ACETAMINOPHEN 325 MG TABLET PO PRN (10:56)
[2017-08-20] MEDS: ASPIRIN 81 MG TABLET, ENT COATED PO SCH (10:56)
[2017-08-20] MEDS: CIPROFLOXACIN HCL 750 MG TABLET PO SCH ×2 (10:56→22:18)
--- NOTE | 2017-08-21 06:21 | PDOC PROGRESS REPORT ---
Subjective Progress Note for:: 08/21/17 Reason For Visit: M71.061 ABSCESS OF BURSA, RIGHT KNEE 86-year-old white male with a right thigh abscess status post hardware removal. Patient with minor complaints of pain. Physical Exam Vital Signs: Temp Pulse Resp BP Pulse Ox 37.3 C 75 16 112/54 L 96 08/20/17 23:38 08/20/17 23:38 08/20/17 23:38 08/20/17 23:38 08/20/17 23:38 Intake & Output 08/19/17 08/20/17 08/21/17 06:59 06:59 06:59 Intake Total 8621 821 Output Total 6425 375 Balance 2196 446 Weight 91 kg 84.1 kg General appearance: PRESENT: no acute distress Head exam: PRESENT: normocephalic Respiratory exam: PRESENT: unlabored Cardiovascular exam: PRESENT: RRR Pulses: PRESENT: +1 pedal pulses bilateral Vascular exam: PRESENT: normal capillary refill GI/Abdominal exam: PRESENT: soft Rectal exam: PRESENT: deferred Extremities exam: PRESENT: other - Right lower extremity dressing are changed today. Packing removed from the distal incision. All wounds are well approximated with lizzette. There is no erythema. There is scant serosanguineous drainage proximally. Neurological exam: PRESENT: alert, awake, oriented to person, oriented to place , oriented to time, oriented to situation. ABSENT: motor sensory deficit Psychiatric exam: PRESENT: appropriate affect, normal mood. ABSENT: homicidal ideation, suicidal ideation Skin exam: PRESENT: dry, intact, warm. ABSENT: cyanosis, rash Results Laboratory Results: 08/20/17 06:35 08/20/17 06:35 08/20/17 08/20/17 06:35 06:35 WBC 10.9 H RBC 3.43 L Hgb 10.4 L Hct 31.1 L MCV 91 MCH 30.3 MCHC 33.4 RDW 14.2 H Plt Count 171 Sodium 138.1 Potassium 4.9 Chloride 108 H Carbon Dioxide 23 Anion Gap 7 BUN 18 Creatinine 1.14 Est GFR ( Amer) > 60 Est GFR (Non-Af Amer) > 60 Glucose 97 Calcium 8.9 C-Reactive Protein 39.5 H Impressions: Chest X-Ray 08/10/17 09:35 IMPRESSION: COPD. NO ACUTE RADIOGRAPHIC FINDING IN THE CHEST. Fluoroscopy 08/19/17 00:00 IMPRESSION: Please see combined report for performance of procedure and radiologic supervision and interpretation. Hip X-Ray 08/19/17 00:00 IMPRESSION: IMAGE(S) OBTAINED DURING PROCEDURE. Assessment & Plan - Diagnosis (1) Abscess of right thigh Is this a current diagnosis for this admission?: Yes Plan: Patient making slow progress with physical therapy. Anticipate discharge to a retirement facility on Thursday. Cultures are no growth so far. Gram stain of the proximal wound indicates few polys. Gram stain of the distal wound crates indicates a large number of polys suggesting somewhat compartmentalized process. White count is falling. Sed rate and CRP are both elevated. Continue on empiric antibiotics pending final cultures. - Time Time Spent with patient: 15-24 minutes Anticipated discharge: SNF Within: Other
[2017-08-21] MEDS: HYDROCODONE/ACETAMINOPHEN 5-325 MG TABLET PO PRN (09:12)
[2017-08-21] MEDS: ASPIRIN 81 MG TABLET, ENT COATED PO SCH (09:12)
[2017-08-21] MEDS: CIPROFLOXACIN HCL 750 MG TABLET PO SCH ×2 (09:12→22:03)
[2017-08-21] MEDS: ACETAMINOPHEN 325 MG TABLET PO PRN (17:26)
--- NOTE | 2017-08-22 08:09 | PDOC PROGRESS REPORT ---
Subjective Progress Note for:: 08/22/17 Reason For Visit: M71.061 ABSCESS OF BURSA, RIGHT KNEE 86-year-old white male status post right femoral nail removal for suspected periprosthetic infection. Cultures have remained no growth so far. Patient remains afebrile. Physical Exam Vital Signs: Temp Pulse Resp BP Pulse Ox 37.2 C 74 17 136/52 H 97 08/22/17 00:01 08/22/17 00:01 08/22/17 00:01 08/22/17 00:01 08/22/17 00:01 Intake & Output 08/21/17 08/22/17 08/23/17 06:59 06:59 06:59 Intake Total 821 591 Output Total 550 445 Balance 271 146 Weight 84.1 kg 84.8 kg General appearance: PRESENT: no acute distress Head exam: PRESENT: normocephalic Respiratory exam: PRESENT: unlabored Cardiovascular exam: PRESENT: RRR Pulses: PRESENT: +1 pedal pulses bilateral Vascular exam: PRESENT: normal capillary refill Extremities exam: PRESENT: other - Right lower extremity dressings clean dry and intact Results Laboratory Results: 08/20/17 06:35 08/20/17 06:35 Impressions: Chest X-Ray 08/10/17 09:35 IMPRESSION: COPD. NO ACUTE RADIOGRAPHIC FINDING IN THE CHEST. Fluoroscopy 08/19/17 00:00 IMPRESSION: Please see combined report for performance of procedure and radiologic supervision and interpretation. Hip X-Ray 08/19/17 00:00 IMPRESSION: IMAGE(S) OBTAINED DURING PROCEDURE. Status: Imported from PACS Assessment & Plan - Diagnosis (1) Abscess of right thigh Is this a current diagnosis for this admission?: Yes Plan: Continue to mobilize with a touchdown weightbearing restriction on the right lower extremity. Anticipate [facility] facility placement on Thursday. - Time Time Spent with patient: 15-24 minutes Anticipated discharge: SNF Within: within 48 hours
[2017-08-22] MEDS: ASPIRIN 81 MG TABLET, ENT COATED PO SCH (09:45)
[2017-08-22] MEDS: CIPROFLOXACIN HCL 750 MG TABLET PO SCH ×2 (09:45→21:34)
[2017-08-22] MEDS: ACETAMINOPHEN 325 MG TABLET PO PRN ×2 (09:45→17:01)
[2017-08-23] MEDS ORDERED: ACETAMINOPHEN 325 MG TABLET ONE (07:14)
[2017-08-23] MEDS: ACETAMINOPHEN 325 MG TABLET PO PRN ×3 (07:17→19:41)
--- NOTE | 2017-08-23 07:41 | PDOC PROGRESS REPORT ---
Subjective Progress Note for:: 08/23/17 Reason For Visit: M71.061 ABSCESS OF BURSA, RIGHT KNEE 86-year-old white male status post removal of a right femoral IM nail for periprosthetic infection. Overall patient is doing well. Cultures remain no growth so far. Patient empirically on Cipro. Physical Exam Vital Signs: Temp Pulse Resp BP Pulse Ox 36.9 C 81 18 127/50 H 97 08/22/17 23:25 08/22/17 23:25 08/22/17 23:25 08/22/17 23:25 08/22/17 23:25 Intake & Output 08/22/17 08/23/17 08/24/17 06:59 06:59 06:59 Intake Total 591 1660 Output Total 445 320 Balance 146 1340 Weight 84.8 kg 85.2 kg General appearance: PRESENT: no acute distress Head exam: PRESENT: normocephalic Respiratory exam: PRESENT: unlabored Cardiovascular exam: PRESENT: RRR Pulses: PRESENT: +1 pedal pulses bilateral Vascular exam: PRESENT: normal capillary refill Extremities exam: PRESENT: other - Right lower extremity dressings clean dry and intact. Neurological exam: PRESENT: alert, awake, oriented to person, oriented to place , oriented to time, oriented to situation. ABSENT: motor sensory deficit Psychiatric exam: PRESENT: appropriate affect, normal mood. ABSENT: homicidal ideation, suicidal ideation Results Laboratory Results: 08/20/17 06:35 08/20/17 06:35 08/19/17 10:39 Knee - Right Gram Stain - Final 08/19/17 10:47 Hip - Right Gram Stain - Final Impressions: Chest X-Ray 08/10/17 09:35 IMPRESSION: COPD. NO ACUTE RADIOGRAPHIC FINDING IN THE CHEST. Fluoroscopy 08/19/17 00:00 IMPRESSION: Please see combined report for performance of procedure and radiologic supervision and interpretation. Hip X-Ray 08/19/17 00:00 IMPRESSION: IMAGE(S) OBTAINED DURING PROCEDURE. Status: Imported from PACS Assessment & Plan - Diagnosis (1) Abscess of right thigh Is this a current diagnosis for this admission?: Yes Plan: Continue on empiric Cipro, touchdown weightbearing restriction on the right lower extremity, and expect long term facility placement tomorrow.
[2017-08-23] MEDS: CIPROFLOXACIN HCL 750 MG TABLET PO SCH ×2 (10:29→22:11)
[2017-08-23] MEDS: ASPIRIN 81 MG TABLET, ENT COATED PO SCH (10:29)
--- NOTE | 2017-08-24 06:56 | PDOC TRANSFER SUMMARY ---
General - Admit/Disc Date/PCP Admission Date/Primary Care Provider: BROCK GRAVES MD Discharge Date: 08/24/17 - Discharge Diagnosis (1) Abscess of right thigh Is this a current diagnosis for this admission?: Yes - Additional Information Discharge Diet: As Tolerated, Regular Discharge Activity: Balance Activity w/Rest, No Driving, No tub bath, Other - Touchdown weightbearing restriction right lower extremity Home Medications: Metoprolol Succinate [Toprol Xl 50 mg Tab.sr] 50 mg PO BID 09/18/11 Simvastatin [Zocor 40 mg Tablet] 40 mg PO QHS 09/18/11 Latanoprost [Xalatan 0.005% Oph Soln 2.5 ml] 1 drop OU QHS 09/22/11 Fluticasone/Salmeterol [Advair 250-50 Diskus 28 dose] 1 inh IH Q12H 09/27/14 Tiotropium Paradox [Spiriva Handihaler 18 mcg/dose (30 Dose)] 1 cap IH DAILY 11/04 Aspirin/Dipyridamole [Aggrenox 25 mg/200 mg Capsule SA] 1 cap.sr PO Q12 Cyanocobalamin (Vitamin B-12) [Vitamin B12] 1,000 mcg INJ .MONTHLY 06/17/17 Doxazosin Mesylate 4 mg PO QPM 06/17/17 Meclizine HCl 25 mg PO Q6 06/17/17 Tramadol HCl [Ultram] 50 mg PO Q6 06/17/17 Acetaminophen [Tylenol 325 mg Tablet] 650 mg PO Q4HP PRN tablet 08/24/17 Aspirin [Ecotrin 81 mg EC Tablet] 81 mg PO DAILY tabec 08/24/17 Ciprofloxacin HCl [Cipro 750 mg Tablet] 750 mg PO Q12 tablet 08/24/17 Tramadol HCl [Ultram 50 mg Tablet] 50 mg PO Q6HP PRN tablet 08/24/17 History of Present Illness Admission Date/PCP: BROCK GRAVES MD History of Present Illness: SARMAD DURON is a 86 year old male status post open reduction internal fixation of her right femur fracture several years ago. Patient presented with a draining sinus tract from the lateral suprapatellar region. He underwent an I &D of this and it seemed to heal uneventfully, but then recurred. MRI scan demonstrated that the fluid tract to the base of the nail. In light of this it was felt that they will nail was a contributing factor to the patient's draining sinus tract and he is admitted for elective hardware removal. Hospital Course Hospital Course: Patient is admitted through the operating where he undergoes uncomplicated right femoral nail removal. Intraoperatively appears to be purulent fluid at the distal aspect of the nail. Intraoperative cultures remain no growth so far. Patient started empirically on ciprofloxacin. He makes excellent progress with physical therapy but does not have the necessary function to be considered for discharge home. Will now be discharged to alf facility. Physical Exam Vital Signs: Temp Pulse Resp BP Pulse Ox 36.3 C 78 18 140/64 H 97 08/23/17 23:38 08/23/17 23:38 08/23/17 23:38 08/23/17 23:38 08/23/17 23:38 Intake & Output 08/22/17 08/23/17 08/24/17 06:59 06:59 06:59 Intake Total 591 1660 1699 Output Total 445 320 375 Balance 146 1340 1324 Weight 84.8 kg 85.2 kg 87 kg General appearance: PRESENT: no acute distress Head exam: PRESENT: normocephalic Respiratory exam: PRESENT: unlabored Cardiovascular exam: PRESENT: RRR Pulses: PRESENT: +1 pedal pulses bilateral GI/Abdominal exam: PRESENT: soft Rectal exam: PRESENT: deferred Extremities exam: PRESENT: other - Right lower extremity dressings remain clean dry and intact Neurological exam: PRESENT: alert, awake, oriented to person, oriented to place , oriented to time, oriented to situation. ABSENT: motor sensory deficit Psychiatric exam: PRESENT: appropriate affect, normal mood. ABSENT: homicidal ideation, suicidal ideation Skin exam: PRESENT: dry, intact, warm. ABSENT: cyanosis, rash Results Laboratory Results: 08/20/17 06:35 08/20/17 06:35 08/19/17 10:39 Knee - Right Gram Stain - Final 08/19/17 10:39 Knee - Right Wound Culture - Final NO AEROBIC OR ANAEROBIC ORGANISMS RECOVERED 08/19/17 10:47 Hip - Right Gram Stain - Final 08/19/17 10:47 Hip - Right Wound Culture - Final NO AEROBIC OR ANAEROBIC ORGANISMS RECOVERED Impressions: Chest X-Ray 08/10/17 09:35 IMPRESSION: COPD. NO ACUTE RADIOGRAPHIC FINDING IN THE CHEST. Fluoroscopy 08/19/17 00:00 IMPRESSION: Please see combined report for performance of procedure and radiologic supervision and interpretation. Hip X-Ray 08/19/17 00:00 IMPRESSION: IMAGE(S) OBTAINED DURING PROCEDURE. Transfer Plan - Time Spent with Patient Time spent with patient: Less than 30 Minutes Qualifiers - * PATIENT BEING DISCHARGED WITH ANY OF THE FOLLOWING DIAGNOSIS: No VTE patient discharged on overlapping Therapy?: Yes Plan Discharge Plan: Patient will continue with physical therapy on a touchdown weightbearing restriction right lower extremity. Follow-up with Dr. Fitzpatrick the [facility] for surgery for staple removal in 2 weeks.
[2017-08-24] MEDS: ASPIRIN 81 MG TABLET, ENT COATED PO SCH (09:24)
[2017-08-24] MEDS: CIPROFLOXACIN HCL 750 MG TABLET PO SCH (09:24)
[2017-08-24] MEDS: ACETAMINOPHEN 325 MG TABLET PO PRN (09:25)
[2017-08-24 12:37] VITALS: BP 127/69
--- NOTE | 2017-08-26 07:26 | Operative Report ---
Operative Report DATE OF SURGERY: 08/26/17 PREOPERATIVE DIAGNOSIS: Right periprosthetic thigh infection OPERATION: Removal of right cephalo-medullary nail and irrigation debridement of sinus tract SURGEON: SHIREEN SEWELL ANESTHESIA: Spinal TISSUE REMOVED OR ALTERED: Cultures to microbiology. Implant to CSS ESTIMATED BLOOD LOSS: 100 PROCEDURE: With the patient in a left lateral decubitus position after table right lower extremity hunker prepped and draped in sterile fashion. 3 incisions were made over the right lateral hindquarter beginning at the distal thigh, approximately at the level of the subtrochanteric region, and approximately the level of the super trochanteric level. These incisions were then used to remove the underlying cephalo-medullary nail. This is uneventful. At the distal incision there is some purulent type fluid identified. Cultures are sent from both the proximal and the distal aspect. Next the draining sinus tract from the superolateral region of the patella is debrided. The incisions to remove the nail are closed primarily. The incision and debridement of the draining sinus tract are packed with iodoform gauze.
== END 2017-08-24 12:30 | DRG 498 ==
LOC: EDSTATUS 09:00 → OROUT 08-19 08:05 → EDSTATUS 08-19 09:00 → 4S 08-19 13:00 → OROUT 08-19 13:00 → 4S 08-19 13:03 → OROUT 08-21 18:33 → 4S 08-21 18:33 → OROUT 08-24 12:30 → 4S 08-24 12:30
PROVIDERS: ADMIT Orthopaedic Surgery; ATTEND Orthopaedic Surgery
PROC: 0M9N0ZX Drainage of Right Knee Bursa and Ligament, Open Approach, Diagnostic (ICD-10-PCS; 2017-08-19)
PROC: 0QP804Z Removal of Internal Fixation Device from Right Femoral Shaft, Open Approach (ICD-10-PCS; principal; 2017-08-19 10:15)
DX: M71.061 Abscess of bursa, right knee (principal); T84.620A Infection and inflammatory reaction due to internal fixation device of right femur, initial encounter; J44.9 Chronic obstructive pulmonary disease, unspecified; E78.00 Pure hypercholesterolemia, unspecified; F32.9 Major depressive disorder, single episode, unspecified; I10 Essential (primary) hypertension; F17.220 Nicotine dependence, chewing tobacco, uncomplicated; Y79.1 Therapeutic (nonsurgical) and rehabilitative orthopedic devices associated with adverse incidents; Z79.01 Long term (current) use of anticoagulants; Z79.899 Other long term (current) drug therapy; Z88.8 Allergy status to other drugs, medicaments and biological substances; Z91.013 Allergy to seafood; Z86.73 Personal history of transient ischemic attack (TIA), and cerebral infarction without residual deficits; Z90.79 Acquired absence of other genital organ(s)
CPT/HCPCS: 01392; 36415; 71046; 80048; 81001; 85027; 85610; 85652; 85730; 86140; 87070; 87075; 87205; 93005; 93010; 94799; G8978-GP; G8979-GP; J0690; J2250; J2405; J2704; J3010; J3490

== ENCOUNTER → 2018-10-05 | Outpatient (CLI) | payer MEDICARE, OTHER ==
--- NOTE | 2018-10-05 10:48 | RADIOLOGY REPORT (SQ) ---
EXAM DESCRIPTION: FOOT RIGHT 2 VIEWS COMPLETED DATE/TIME: 10/05/2018 9:46 am REASON FOR STUDY: PAIN IN RT FOOT M79.671 PAIN IN RIGHT FOOT COMPARISON: None. NUMBER OF VIEWS: Two views. TECHNIQUE: AP and lateral radiographic images acquired of the right foot. LIMITATIONS: None. FINDINGS: MINERALIZATION: Decreased BONES: No acute fracture dislocation. Degenerative changes about the foot with joint space loss and osteophytosis about scattered interphalangeal joints and midfoot osteophytosis. Mild soft tissue bun ion about the 1st MTP joint. Superior and plantar calcaneal enthesophytes. JOINTS: No large effusion. Degenerative changes as above. SOFT TISSUES: Extensive vascular calcifications. OTHER: No other significant finding. IMPRESSION: No definite acute bony abnormality. Decreased osseous mineralization with scattered degenerative changes about the foot as above. TECHNICAL DOCUMENTATION: JOB ID: [id number] [employer]- All Rights Reserved Reading location - IP/workstation name: [email or web address]
== END ==
LOC: OD 09:31
PROVIDERS: ATTEND Internal Medicine
DX: M79.671 Pain in right foot (principal)

== ENCOUNTER 2018-11-25 08:49 | Inpatient (IN) | payer MEDICARE, OTHER ==
[2018-11-25] MEDS ORDERED: NORMAL SALINE 1000 ML 1,000 ML IV ONE (09:01)
[2018-11-25 09:36] LABS: ABSOLUTE BASOPHILS # (AUTO) 0.1 10^3/uL (0.0-0.2); ABSOLUTE EOSINOPHILS # (AUTO) 0.1 10^3/uL (0.0-0.6); ABSOLUTE LYMPHOCYTES (AUTO) 1.2 10^3/uL (0.5-4.7); ABSOLUTE MONOCYTES (AUTO) 0.9 10^3/uL (0.1-1.4); ABSOLUTE NEUT (AUTO) 13.8 10^3/uL (1.7-8.2); BASOPHILS % (AUTO) 0.5 % (0-2); EOSINOPHILS % (AUTO) 0.5 % (0-6); HEMATOCRIT 34.2 % (37.9-51.0); HEMOGLOBIN 11.3 g/dL (13.5-17.0); LYMPHOCYTES % (AUTO) 7.7 % (13-45); MEAN CORPUSCULAR HEMOGLOBIN 33.1 pg (27.0-33.4); MEAN CORPUSCULAR HGB CONC 33.1 g/dL (32.0-36.0); MEAN CORPUSCULAR VOLUME 100 fl (80-97); MONOCYTES % (AUTO) 5.6 % (3-13); PLATELET COUNT 118 10^3/uL (150-450); RED BLOOD COUNT 3.42 10^6/uL (4.35-5.55); RED CELL DISTRIBUTION WIDTH 15.2 % (11.5-14.0); SEGMENTED NEUTROPHILS % (AUTO) 85.7 % (42-78); TOTAL CELLS COUNTED % (AUTO) 100 %
[2018-11-25 09:37] LABS: VENOUS BLOOD BASE EXCESS -5.2 mmol/L; VENOUS BLOOD HCO3 18.8 mmol/L (20-32); VENOUS BLOOD PCO2 31.9 mmHg (35-63); VENOUS BLOOD PH 7.39 (7.30-7.42)
[2018-11-25 09:41] LABS: INTERNATIONAL RATION (INR) 1.22; PROTHROMBIN TIME 15.5 SEC (11.4-15.4)
--- NOTE | 2018-11-25 10:00 | RADIOLOGY REPORT (SQ) ---
EXAM DESCRIPTION: CHEST SINGLE VIEW COMPLETED DATE/TIME: 11/25/2018 9:40 am REASON FOR STUDY: hypotension COMPARISON: 12/15/2014 NUMBER OF VIEWS: One view. TECHNIQUE: Single frontal radiographic view of the chest acquired. LIMITATIONS: None. FINDINGS: LUNGS AND PLEURA: No opacities, masses or pneumothorax. No pleural effusion. Attenuated bl ood vessels and flattened lucía-diaphragms. MEDIASTINUM AND HILAR STRUCTURES: No masses. Contour normal. HEART AND VASCULAR STRUCTURES: Stable heart size. Normal vasculature. BONES: No acute findings. HARDWARE: None in the chest. OTHER: No other significant finding. IMPRESSION: COPD. NO ACUTE RADIOGRAPHIC FINDING IN THE CHEST. TECHNICAL DOCUMENTATION: JOB ID: [id number] [employer]- All Rights Reserved Reading location - IP/workstation name: [email or web address]
[2018-11-25 10:06] LABS: APPEARANCE,URINE SLIGHTLY-CLOUDY; BILIRUBIN,URINE NEGATIVE (NEGATIVE); COLOR,URINE YELLOW; GLUCOSE, URINE NEGATIVE (NEGATIVE); KETONES,URINE NEGATIVE (NEGATIVE); LEUKOCYTE ESTERASE,URINE LARGE (NEGATIVE); NITRITE,URINE POSITIVE (NEGATIVE); PROTEIN,URINE NEGATIVE (NEGATIVE); URINE SPECIFIC GRAVITY 1.013; UROBILINOGEN,URINE NEGATIVE mg/dL (<2.0)
[2018-11-25 10:07] LABS: ALBUMIN 3.1 g/dL (3.5-5.0); ALKALINE PHOSPHATASE 91 U/L (38-126); ANION GAP 9 (5-19); ASPARTATE AMINO TRANSFERASE 28 U/L (17-59); BILIRUBIN,DIRECT 0.5 mg/dL (0.0-0.4); BILIRUBIN,TOTAL 0.7 mg/dL (0.2-1.3); BLOOD UREA NITROGEN 17 mg/dL (7-20); CALCIUM 8.8 mg/dL (8.4-10.2); CARBON DIOXIDE 21 mmol/L (22-30); CHLORIDE 108 mmol/L (98-107); GLUCOSE 106 mg/dL (75-110); POTASSIUM 3.9 mmol/L (3.6-5.0); TOTAL PROTEIN 5.9 g/dL (6.3-8.2)
[2018-11-25] MEDS ORDERED: CEFEPIME 2 GM/D5W RTU 2 GM/50 ML RTUPB IV SCH ×2 (11:00→13:00)
--- NOTE | 2018-11-25 11:55 | ER Document Report ---
Entered by AVELINA ABBOTT SCRIBE 11/25/1814 Acting as scribe for:LUPILLO ZACARIAS DO ED General - General Chief Complaint: Dizziness Stated Complaint: WEAKNESS Time Seen by Provider: 11/25/18 09:01 Primary Care Provider: BROCK GRAVES MD [Primary Care Provider] - Follow up as needed Mode of Arrival: Ambulatory Information source: Patient Notes: Patient is an 87 year old male that presents to the emergency department today with complaints of "not being able to get out of bed this morning". Patient states that he has bilateral knee pain from gout and right hip pain, all of which are chronic. EMS reports the patient was hypotensive when he stood up. Family member at bedside states the patient was very diaphoretic this morning. Patient and family deny coughs, fevers, vomiting, diarrhea, or abdominal pain. TRAVEL OUTSIDE OF THE [place] IN LAST 30 DAYS: No - Related Data Allergies/Adverse Reactions: Shellfish * [Shellfish] Allergy (Mild, Verified 11/25/18 08:58) Rash Past Medical History - General Information source: Patient - Social History Smoking Status: Unknown if Ever Smoked Cigarette use (# per day): No Frequency of alcohol use: None Drug Abuse: None Lives with: Family Family History: Reviewed & Not Pertinent Patient has suicidal ideation: No Patient has homicidal ideation: No - Past Medical History Cardiac Medical History: Reports: Hx Hypercholesterolemia, Hx Hypertension - NOT MEDICATED D/T HYPOTENSION Pulmonary Medical History: Reports: Hx COPD Renal/ Medical History: Reports: Hx Benign Prostatic Hyperplasia Malignancy Medical History: Reports Hx Skin Cancer Musculoskeletal Medical History: Reports Hx Arthritis - LEFT ANKLE Psychiatric Medical History: Reports: Hx Depression - When drinking Traumatic Medical History: Reports: Hx Fractures - Left Leg Past Surgical History: Reports: Hx Nose Surgery, Hx Orthopedic Surgery - Immunizations Immunizations up to date: Yes Hx Diphtheria, Pertussis, Tetanus Vaccination: Yes Hx Pneumococcal Vaccination: 03/23/12 Review of Systems - Review of Systems Constitutional: See HPI, Diaphoresis, Weakness - "couldn't stand up". denies: Fever EENT: No symptoms reported Cardiovascular: No symptoms reported Respiratory: denies: Cough Gastrointestinal: denies: Abdominal pain, Diarrhea, Vomiting Genitourinary: No symptoms reported Male Genitourinary: No symptoms reported Musculoskeletal: See HPI, Joint pain - complains of right hip pain and bilateral knee pain, both are chronic Skin: No symptoms reported Hematologic/Lymphatic: No symptoms reported Neurological/Psychological: No symptoms reported -: Yes All other systems reviewed and negative Physical Exam - Vital signs Interpretation: Hypotensive - General General appearance: Alert In distress: None - HEENT Head: Normocephalic, Atraumatic Cornea: Normal Extraocular movements intact: Yes Pupils: PERRL Mucous membranes: Dry Pharynx: Normal - Respiratory Respiratory status: No respiratory distress Chest status: Nontender Breath sounds: Normal - Cardiovascular Rhythm: Regular - Abdominal Inspection: Normal Distension: No distension Bowel sounds: Normal Tenderness: Nontender - Back Back: Normal - Extremities General upper extremity: Normal inspection, Normal strength General lower extremity: Tender, Normal ROM, Normal strength Shoulder: Normal Arm: Normal Elbow: Normal Forearm: Normal Wrist: Normal Hand: Normal Hip: Normal Thigh: Normal Knee: Tender - Left with some erythema and warmth. Full range of motion. Ankle: Normal Foot: Normal - Neurological Neuro grossly intact: Yes Cognition: Normal Orientation: AAOx4 Yan Coma Scale Eye Opening: Spontaneous Yan Coma Scale Verbal: Confused Speech: Normal Course - Re-evaluation Re-evalutation: 11/25/18 11:53 Patient is an 87-year-old male who comes in with some confusion and low blood pressure at home prior to arrival. Per EMS, blood pressure was 70/40 with standing. Improved with patient sitting down. Patient is complaining of pain in his knee and symptoms are consistent with gout by history and exam. Patient does have a nitrite positive urinalysis. Urine culture will be sent. Blood cultures pending. Cefepime initiated. Discussed with Dr. Graves and will admit. - Laboratory Result Diagrams: 11/25/18 09:22 11/25/18 09:22 Laboratory results interpreted by me: 11/25/18 11/25/18 11/25/18 09:22 09:22 09:22 WBC 16.0 H RBC 3.42 L Hgb 11.3 L Hct 34.2 L MCV 100 H RDW 15.2 H Plt Count 118 L Lymph % (Auto) 7.7 L Absolute Neuts (auto) 13.8 H Seg Neutrophils % 85.7 H PT 15.5 H VBG pCO2 VBG HCO3 Chloride 108 H Carbon Dioxide 21 L Creatinine 1.43 H Est GFR ( Amer) 56 L Est GFR (MDRD) Non-Af 47 L Lactic Acid Direct Bilirubin 0.5 H Total Protein 5.9 L Albumin 3.1 L Urine Blood Urine Nitrite Ur Leukocyte Esterase 11/25/18 11/25/18 11/25/18 09:22 09:22 09:41 WBC RBC Hgb Hct MCV RDW Plt Count Lymph % (Auto) Absolute Neuts (auto) Seg Neutrophils % PT VBG pCO2 31.9 L VBG HCO3 18.8 L Chloride Carbon Dioxide Creatinine Est GFR ( Amer) Est GFR (MDRD) Non-Af Lactic Acid 2.8 H Direct Bilirubin Total Protein Albumin Urine Blood MODERATE H Urine Nitrite POSITIVE H Ur Leukocyte Esterase LARGE H Discharge - Discharge Clinical Impression: UTI (urinary tract infection) Qualifiers: Urinary tract infection type: site unspecified Hematuria presence: with hematuria Qualified Code(s): N39.0 - Urinary tract infection, site not specified; R31.9 - Hematuria, unspecified Sepsis Qualifiers: Sepsis type: sepsis due to unspecified organism Sepsis acute organ dysfunction status: without acute organ dysfunction Qualified Code(s): A41.9 - Sepsis, unspecified organism Condition: Stable Disposition: ADMITTED INPATIENT Admitting Provider: [facility] Admitted: [facility] Referrals: BROCK GRAVES MD [Primary Care Provider] - Follow up as needed I personally performed the services described in the documentation, reviewed and edited the documentation which was dictated to the scribe in my presence, and it accurately records my words and actions.
[2018-11-25 13:25] LABS: PHOSPHORUS 2.7 mg/dL (2.5-4.5)
[2018-11-25 13:36] LABS: URINE AMPHETAMINES SCREEN NEGATIVE; URINE BARBITURATES SCREEN NEGATIVE; URINE BENZODIAZEPINES SCREEN NEGATIVE; URINE COCAINE SCREEN NEGATIVE; URINE MARIJUANA (THC) SCREEN NEGATIVE; URINE METHADONE SCREEN NEGATIVE; URINE PHENCYCLIDINE SCREEN NEGATIVE
[2018-11-25 13:49] LABS: FREE T4 (FREE THYROXINE) 1.01 ng/dL (0.78-2.19)
[2018-11-25 13:56] LABS: ARTERIAL BLOOD BASE EXCESS -4.8 mmol/L; ARTERIAL BLOOD H2CO3 0.78 mmol/L (1.05-1.35); ARTERIAL BLOOD HCO3 17.8 mmol/L (20-24); ARTERIAL BLOOD O2 SATURATION 96.8 % (94-98); ARTERIAL BLOOD PH 7.45 (7.35-7.45); ARTERIAL BLOOD PO2 82.8 mmHg (80-100); ARTERIAL BLOOD TOTAL CO2 18.6 mmol/L (23-27)
[2018-11-25 13:57] LABS: ARTERIAL BLOOD FIO2 ROOM AIR
[2018-11-25 14:03] LABS: THYROID STIMULATING HORMONE 4.45 uIU/mL (0.47-4.68)
[2018-11-25] MEDS: HEPARIN SOD (PORCINE) 5,000 UNIT/ML 1 ML VIAL SUBCUT SCH ×2 (14:06→21:51)
--- NOTE | 2018-11-25 14:16 | EKG REPORT ---
SEVERITY:- ABNORMAL ECG - SINUS RHYTHM VENTRICULAR PREMATURE COMPLEX LAD, CONSIDER LEFT ANTERIOR FASCICULAR BLOCK : Confirmed by: Monae Jason 25-Nov-2018 14:16:07
[2018-11-25 14:20] LABS: PROTHROMBIN TIME 15.3 SEC (11.4-15.4)
[2018-11-25 14:43] LABS: CREATINE KINASE MB 0.28 ng/mL (<4.55)
--- NOTE | 2018-11-25 14:51 | PDOC H&P ---
History of Present Illness Admission Date/PCP: 11/25/18 11:58 BROCK GRAVES MD History of Present Illness: SARMAD DURON is a 87 year old male, he came to the emergency room for ev aluation of generalized weakness, dizziness, he has not been able to get out of bed. He also complained of bilateral knee pain, the left side is more than the right side. He was transferred from home to the emergency room by EMS, the EMS stated that he was very hypotensive at home, the blood pressure recorded was 70 systolic, the the dipstick urinalysis was grossly abnormal consistent with UTI, there was elevated serum lactic acid. The serum creatinine is 1.43, he has underlining chronic obstructive pulmonary disease, history of CVA, arterial blood gas on ambient air, pH 7.45, PCO2 26, PO2 82.8, bicarbonate 17.8. Past Medical History Cardiac Medical History: Reports: Hyperlipidema, Hypertension - NOT MEDICATED D/T HYPOTENSION Pulmonary Medical History: Reports: Chronic Obstructive Pulmonary Disease (COPD) Malignancy Medical History: Reports: Skin Cancer, Other - Prostate cancer Musculoskeltal Medical History: Reports: Arthritis - LEFT ANKLE, Gout Psychiatric Medical History: Reports: Depression - When drinking Past Surgical History Past Surgical History: Reports: Orthopedic Surgery Social History Lives with: Family Smoking Status: Former Smoker Frequency of Alcohol Use: None Hx Recreational Drug Use: No Hx Prescription Drug Abuse: No Family History Family History: Reviewed & Not Pertinent Parental Family History Reviewed: Yes Children Family History Reviewed: Yes Sibling(s) Family History Reviewed.: Yes Medication/Allergy Home Medications: Simvastatin [Zocor 40 mg Tablet] 40 mg PO QHS 09/18/11 Latanoprost [Xalatan 0.005% Oph Soln 2.5 ml] 1 drop OU QHS 09/22/11 Fluticasone/Salmeterol [Advair 250-50 Diskus 28 dose] 1 inh IH Q12 09/27/14 Tiotropium [place] [Spiriva Handihaler 18 mcg/dose (30 Dose)] 1 cap IH DAILY 09/27/14 Aspirin/Dipyridamole [Aggrenox 25 mg/200 mg Capsule SA] 1 cap.sr PO Q12 06/17/17 Cyanocobalamin (Vitamin B-12) [Vitamin B12] 1,000 mcg INJ .MONTHLY 06/17/17 Doxazosin Mesylate 4 mg PO QPM 06/17/17 Meclizine HCl 25 mg PO Q6 06/17/17 Tramadol HCl [Ultram 50 mg Tablet] 50 mg PO Q6HP PRN tablet 08/24/17 Allopurinol [Zyloprim 100 mg Tablet] 100 mg PO BID 11/25/18 Omeprazole 20 mg PO DAILY 11/25/18 Allergies/Adverse Reactions: Shellfish * [Shellfish] Allergy (Mild, Verified 11/25/18 08:58) Rash Review of Systems Constitutional: PRESENT: fatigue Eyes: ABSENT: visual disturbances Ears: ABSENT: hearing changes Cardiovascular: ABSENT: chest pain, dyspnea on exertion, edema, orthropnea, palpitations Respiratory: ABSENT: cough, hemoptysis Gastrointestinal: ABSENT: abdominal pain, constipation, diarrhea, hematemesis, hematochezia, nausea, vomiting Genitourinary: PRESENT: dysuria Musculoskeletal: ABSENT: joint swelling Integumentary: ABSENT: rash, wounds Neurological: ABSENT: abnormal gait, abnormal speech, confusion, dizziness, focal weakness, syncope Psychiatric: ABSENT: anxiety, depression, homidical ideation, suicidal ideation Endocrine: ABSENT: cold intolerance, heat intolerance, menstrual abnormalities, polydipsia, polyuria Hematologic/Lymphatic: ABSENT: easy bleeding, easy bruising, lymphadenopathy Physical Exam Vital Signs: Temp Pulse Resp BP Pulse Ox 20 98/67 L 95 11/25/18 14:01 11/25/18 14:01 11/25/18 14:01 Intake & Output 11/24/18 11/25/18 11/26/18 06:59 06:59 06:59 Intake Total 1050 Balance 1050 Weight 93.3 kg General appearance: PRESENT: no acute distress Head exam: PRESENT: atraumatic, normocephalic Eye exam: PRESENT: PERRLA Mouth exam: PRESENT: dry mucosa Neck exam: PRESENT: full ROM Respiratory exam: PRESENT: clear to auscultation jenny Cardiovascular exam: PRESENT: RRR, +S1, +S2 Vascular exam: PRESENT: normal capillary refill GI/Abdominal exam: PRESENT: normal bowel sounds, soft Rectal exam: PRESENT: deferred Extremities exam: PRESENT: joint swelling Neurological exam: PRESENT: alert Skin exam: PRESENT: dry, intact, warm Results Laboratory Results: 11/25/18 09:22 11/25/18 09:22 11/25/18 11/25/18 11/25/18 09:22 09:22 09:22 WBC 16.0 H RBC 3.42 L Hgb 11.3 L Hct 34.2 L MCV 100 H MCH 33.1 MCHC 33.1 RDW 15.2 H Plt Count 118 L Seg Neutrophils % 85.7 H Carbonic Acid HCO3/H2CO3 Ratio ABG pH ABG pCO2 ABG pO2 ABG HCO3 ABG O2 Saturation ABG Base Excess VBG pH VBG pCO2 VBG HCO3 VBG Base Excess FiO2 Sodium 137.8 Potassium 3.9 Chloride 108 H Carbon Dioxide 21 L Anion Gap 9 BUN 17 Creatinine 1.43 H Est GFR ( Amer) 56 L Glucose 106 Lactic Acid 2.8 H Calcium 8.8 Phosphorus Magnesium Total Bilirubin 0.7 AST 28 Alkaline Phosphatase 91 Ammonia Total Protein 5.9 L Albumin 3.1 L Amylase Lipase TSH Free T4 Urine Color Urine Appearance Urine pH Ur Specific [place] Urine Protein Urine Glucose (UA) Urine Ketones Urine Blood Urine Nitrite Ur Leukocyte Esterase Urine WBC (Auto) Urine RBC (Auto) 11/25/18 11/25/18 11/25/18 09:22 09:22 09:22 WBC RBC Hgb Hct MCV MCH MCHC RDW Plt Count Seg Neutrophils % Carbonic Acid HCO3/H2CO3 Ratio ABG pH ABG pCO2 ABG pO2 ABG HCO3 ABG O2 Saturation ABG Base Excess VBG pH 7.39 VBG pCO2 31.9 L VBG HCO3 18.8 L VBG Base Excess -5.2 FiO2 Sodium Potassium Chloride Carbon Dioxide Anion Gap BUN Creatinine Est GFR ( Amer) Glucose Lactic Acid Calcium Phosphorus 2.7 Magnesium 1.2 L* Total Bilirubin AST Alkaline Phosphatase Ammonia Total Protein Albumin Amylase 358 H Lipase 31.2 TSH 4.45 Free T4 1.01 Urine Color Urine Appearance Urine pH Ur Specific [place] Urine Protein Urine Glucose (UA) Urine Ketones Urine Blood Urine Nitrite Ur Leukocyte Esterase Urine WBC (Auto) Urine RBC (Auto) 11/25/18 11/25/18 11/25/18 09:41 13:43 13:59 WBC RBC Hgb Hct MCV MCH MCHC RDW Plt Count Seg Neutrophils % Carbonic Acid 0.78 L HCO3/H2CO3 Ratio 22:1 ABG pH 7.45 ABG pCO2 26.0 L ABG pO2 82.8 ABG HCO3 17.8 L ABG O2 Saturation 96.8 ABG Base Excess -4.8 VBG pH VBG pCO2 VBG HCO3 VBG Base Excess FiO2 ROOM AIR Sodium Potassium Chloride Carbon Dioxide Anion Gap BUN Creatinine Est GFR ( Amer) Glucose Lactic Acid 1.5 Calcium Phosphorus Magnesium Total Bilirubin AST Alkaline Phosphatase Ammonia Total Protein Albumin Amylase Lipase TSH Free T4 Urine Color YELLOW Urine Appearance SLIGHTLY-CLOUDY Urine pH 5.0 Ur Specific [place] 1.013 Urine Protein NEGATIVE Urine Glucose (UA) NEGATIVE Urine Ketones NEGATIVE Urine Blood MODERATE H Urine Nitrite POSITIVE H Ur Leukocyte Esterase LARGE H Urine WBC (Auto) 89 Urine RBC (Auto) 6 11/25/18 13:59 WBC RBC Hgb Hct MCV MCH MCHC RDW Plt Count Seg Neutrophils % Carbonic Acid HCO3/H2CO3 Ratio ABG pH ABG pCO2 ABG pO2 ABG HCO3 ABG O2 Saturation ABG Base Excess VBG pH VBG pCO2 VBG HCO3 VBG Base Excess FiO2 Sodium Potassium Chloride Carbon Dioxide Anion Gap BUN Creatinine Est GFR ( Amer) Glucose Lactic Acid Calcium Phosphorus Magnesium Total Bilirubin AST Alkaline Phosphatase Ammonia < 8.7 L Total Protein Albumin Amylase Lipase TSH Free T4 Urine Color Urine Appearance Urine pH Ur Specific [place] Urine Protein Urine Glucose (UA) Urine Ketones Urine Blood Urine Nitrite Ur Leukocyte Esterase Urine WBC (Auto) Urine RBC (Auto) 11/25/18 11/25/18 11/25/18 09:22 09:22 13:59 Creatine Kinase 32 L Troponin I < 0.012 NT-Pro-B Natriuret Pep 743 H Impressions: Chest X-Ray 11/25/18 09:01 IMPRESSION: COPD. NO ACUTE RADIOGRAPHIC FINDING IN THE CHEST. Assessment & Plan - Diagnosis (1) Sepsis Qualifiers: Sepsis type: sepsis due to unspecified organism Sepsis acute organ dysfunction status: with acute organ dysfunction Severe sepsis acute organ dysfunction type: acute renal failure Acute renal failure type: with other specified pathological lesion Severe sepsis shock status: with septic shock Qualified Code(s): A41.9 - Sepsis, unspecified organism; R65.21 - Severe sepsis with septic shock; N17.8 - Other acute kidney failure Is this a current diagnosis for this admission?: Yes Plan: Patient met criteria for septic shock, the potential source for the sepsis is the urine, antibiotic to cover gram-negative radha to be started empirically (2) Hypotension Qualifiers: Hypotension type: unspecified hypotension type Qualified Code(s): I95.9 - Hypotension, unspecified Is this a current diagnosis for this admission?: Yes Plan: Treat with normal saline at 30 mils per KG bolus then maintenance with ringer lactate (3) Acute kidney injury Is this a current diagnosis for this admission?: Yes Plan: The acute kidney injury is sepsis related probably ATN hydrate with fluid (4) Hypoalbuminemia Is this a current diagnosis for this admission?: Yes Plan: This is probably from malnutrition, the urine dipstick negative for albuminuria, the LFTs are normal (5) Arthropathy of knee Is this a current diagnosis for this admission?: Yes Plan: 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
[2018-11-25 14:55] LABS: TROPONIN I < 0.012 ng/mL
[2018-11-25] MEDS ORDERED: (PENDING PHARMACY ID) (Cyanocobalamin (Vitamin B-12) [Vitamin B12] 1,000 MCG) INJ SCH (15:45)
[2018-11-25] MEDS ORDERED: (PENDING PHARMACY ID) (Fluticasone/Salmeterol [Advair 250-50 Diskus 28 Dose] 1 INH) IH SCH (15:45)
[2018-11-25] MEDS ORDERED: MAGNESIUM SULFATE/D5W 1 GM/100 ML RTUPB IV ONE (16:45)
[2018-11-25] MEDS: NORMAL SALINE 1000 ML 1,000 ML IV PRN (17:20)
[2018-11-25] MEDS: TIOTROPIUM BROMIDE DPI 5 CAP/KIT (18 MCG/CAP) IH SCH (17:22)
[2018-11-25] MEDS: ALLOPURINOL 100 MG TABLET PO SCH (17:23)
[2018-11-25] MEDS: MECLIZINE HCL 25 MG TABLET PO SCH (17:23)
[2018-11-25] MEDS: DOXAZOSIN MESYLATE 4 MG TABLET PO SCH (17:23)
[2018-11-25] MEDS: ASPIRIN/DIPYRIDAMOLE 25-200 MG 1 CAP.SR CPMP.12HR PO SCH ×2 (17:23→21:49)
[2018-11-25 19:55] LABS: CREATINE KINASE MB 0.4 ng/mL (<4.55); TROPONIN I 0.013 ng/mL
[2018-11-25] MEDS: TRAMADOL HCL 50 MG TABLET PO PRN (21:49)
[2018-11-25] MEDS: LATANOPROST 0.005% OPH SOLN 2.5 ML OU SCH (21:50)
[2018-11-25] MEDS: SIMVASTATIN 40 MG TABLET PO SCH (21:50)
[2018-11-25] MEDS: CEFEPIME HCL 2 GM in DEXTROSE 5%-WATER 50 ML IV SCH (21:52)
[2018-11-26] MEDS: MECLIZINE HCL 25 MG TABLET PO SCH ×4 (00:29→17:15)
[2018-11-26 01:47] LABS: CREATINE KINASE MB 0.33 ng/mL (<4.55); TROPONIN I 0.016 ng/mL
[2018-11-26] MEDS: HEPARIN SOD (PORCINE) 5,000 UNIT/ML 1 ML VIAL SUBCUT SCH ×3 (05:43→21:00)
[2018-11-26 08:06] LABS: ABSOLUTE EOSINOPHILS # (AUTO) 0.2 10^3/uL (0.0-0.6); ABSOLUTE LYMPHOCYTES (AUTO) 1.9 10^3/uL (0.5-4.7); ABSOLUTE MONOCYTES (AUTO) 0.9 10^3/uL (0.1-1.4); ABSOLUTE NEUT (AUTO) 7.3 10^3/uL (1.7-8.2); BASOPHILS % (AUTO) 0.2 % (0-2); EOSINOPHILS % (AUTO) 1.9 % (0-6); HEMATOCRIT 32.5 % (37.9-51.0); HEMOGLOBIN 10.9 g/dL (13.5-17.0); LYMPHOCYTES % (AUTO) 18.7 % (13-45); MEAN CORPUSCULAR HEMOGLOBIN 33.9 pg (27.0-33.4); MEAN CORPUSCULAR HGB CONC 33.6 g/dL (32.0-36.0); MEAN CORPUSCULAR VOLUME 101 fl (80-97); MONOCYTES % (AUTO) 8.6 % (3-13); PLATELET COUNT 103 10^3/uL (150-450); RED BLOOD COUNT 3.22 10^6/uL (4.35-5.55); RED CELL DISTRIBUTION WIDTH 15.5 % (11.5-14.0); SEGMENTED NEUTROPHILS % (AUTO) 70.6 % (42-78); TOTAL CELLS COUNTED % (AUTO) 100 %; WHITE BLOOD COUNT 10.3 10^3/uL (4.0-10.5)
[2018-11-26 08:23] LABS: ALBUMIN 2.8 g/dL (3.5-5.0); ALKALINE PHOSPHATASE 78 U/L (38-126); ANION GAP 6 (5-19); ASPARTATE AMINO TRANSFERASE 22 U/L (17-59); BILIRUBIN,DIRECT 0.3 mg/dL (0.0-0.4); BILIRUBIN,TOTAL 0.9 mg/dL (0.2-1.3); BLOOD UREA NITROGEN 15 mg/dL (7-20); CALCIUM 8.4 mg/dL (8.4-10.2); CARBON DIOXIDE 19 mmol/L (22-30); CHLORIDE 110 mmol/L (98-107); CHOLESTEROL 136.27 mg/dL (0-200); GLUCOSE 91 mg/dL (75-110); POTASSIUM 3.9 mmol/L (3.6-5.0); TOTAL PROTEIN 5.3 g/dL (6.3-8.2); TRIGLYCERIDES 89 mg/dL (<150)
[2018-11-26 08:33] LABS: DIRECT LDL 88 mg/dL (<100)
[2018-11-26] MEDS: ALLOPURINOL 100 MG TABLET PO SCH ×2 (09:04→17:15)
[2018-11-26] MEDS: TRAMADOL HCL 50 MG TABLET PO PRN ×2 (09:04→21:00)
[2018-11-26] MEDS: ASPIRIN/DIPYRIDAMOLE 25-200 MG 1 CAP.SR CPMP.12HR PO SCH ×2 (09:04→21:00)
[2018-11-26] MEDS: TIOTROPIUM BROMIDE DPI 5 CAP/KIT (18 MCG/CAP) IH SCH (09:05)
[2018-11-26] MEDS: CEFEPIME HCL 2 GM in DEXTROSE 5%-WATER 50 ML IV SCH ×2 (09:05→21:00)
[2018-11-26] MEDS: FLUTICASONE/VILANTEROL 200-25 MCG/DOSE IH SCH (09:05)
[2018-11-26] MEDS: NORMAL SALINE 1000 ML 1,000 ML IV PRN (09:05)
[2018-11-26] MEDS: PANTOPRAZOLE SODIUM 20 MG TABLET.DR PO SCH (09:08)
[2018-11-26] MEDS ORDERED: COLCHICINE 0.6 MG TABLET PO ONE ×2 (12:15→15:00)
[2018-11-26] MEDS ORDERED: METHYLPREDNISOLONE INJ 40 MG/1 ML SDV IV ONE ×2 (12:15→15:00)
--- NOTE | 2018-11-26 13:05 | PDOC PROGRESS REPORT ---
Subjective Progress Note for:: 11/26/18 Subjective:: Patient seen by the bedside, there is inflammation of the left knee, the blood pressure responded to fluid challenge. He has history of gout, the inflammation of the left knee most likely from gouty arthropathy Reason For Visit: SEPSIS,HYPOTENSION,UTI Physical Exam Vital Signs: Temp Pulse Resp BP Pulse Ox 97.7 F 73 23 H 142/53 H 97 11/26/18 07:41 11/26/18 07:41 11/26/18 03:44 11/26/18 07:41 11/26/18 07:41 Intake & Output 11/25/18 11/26/18 11/27/18 06:59 06:59 06:59 Intake Total 2510 340 Output Total 125 100 Balance 2385 240 Weight 96.5 kg General appearance: PRESENT: no acute distress Eye exam: PRESENT: PERRLA Respiratory exam: PRESENT: clear to auscultation jenny Cardiovascular exam: PRESENT: +S1, +S2 GI/Abdominal exam: PRESENT: soft Neurological exam: PRESENT: alert Results Laboratory Results: 11/26/18 07:37 11/26/18 07:37 11/25/18 11/25/18 11/25/18 09:22 09:22 13:43 WBC RBC Hgb Hct MCV MCH MCHC RDW Plt Count Seg Neutrophils % Carbonic Acid 0.78 L HCO3/H2CO3 Ratio 22:1 ABG pH 7.45 ABG pCO2 26.0 L ABG pO2 82.8 ABG HCO3 17.8 L ABG O2 Saturation 96.8 ABG Base Excess -4.8 FiO2 ROOM AIR Sodium Potassium Chloride Carbon Dioxide Anion Gap BUN Creatinine Est GFR ( Amer) Glucose Lactic Acid Calcium Phosphorus 2.7 Magnesium 1.2 L* Total Bilirubin AST Alkaline Phosphatase Ammonia Total Protein Albumin Triglycerides Cholesterol LDL Cholesterol Direct VLDL Cholesterol HDL Cholesterol Amylase 358 H Lipase 31.2 TSH 4.45 Free T4 1.01 11/25/18 11/25/18 11/26/18 13:59 13:59 07:37 WBC 10.3 RBC 3.22 L Hgb 10.9 L Hct 32.5 L MCV 101 H MCH 33.9 H MCHC 33.6 RDW 15.5 H Plt Count 103 L Seg Neutrophils % 70.6 Carbonic Acid HCO3/H2CO3 Ratio ABG pH ABG pCO2 ABG pO2 ABG HCO3 ABG O2 Saturation ABG Base Excess FiO2 Sodium Potassium Chloride Carbon Dioxide Anion Gap BUN Creatinine Est GFR ( Amer) Glucose Lactic Acid 1.5 Calcium Phosphorus Magnesium Total Bilirubin AST Alkaline Phosphatase Ammonia < 8.7 L Total Protein Albumin Triglycerides Cholesterol LDL Cholesterol Direct VLDL Cholesterol HDL Cholesterol Amylase Lipase TSH Free T4 11/26/18 07:37 WBC RBC Hgb Hct MCV MCH MCHC RDW Plt Count Seg Neutrophils % Carbonic Acid HCO3/H2CO3 Ratio ABG pH ABG pCO2 ABG pO2 ABG HCO3 ABG O2 Saturation ABG Base Excess FiO2 Sodium 135.4 L Potassium 3.9 Chloride 110 H Carbon Dioxide 19 L Anion Gap 6 BUN 15 Creatinine 1.13 Est GFR ( Amer) > 60 Glucose 91 Lactic Acid Calcium 8.4 Phosphorus Magnesium Total Bilirubin 0.9 AST 22 Alkaline Phosphatase 78 Ammonia Total Protein 5.3 L Albumin 2.8 L Triglycerides 89 Cholesterol 136.27 LDL Cholesterol Direct 88 VLDL Cholesterol 18.0 HDL Cholesterol 40 Amylase Lipase TSH Free T4 11/25/18 11/25/18 11/25/18 09:22 09:22 13:59 Creatine Kinase 32 L CK-MB (CK-2) Troponin I < 0.012 NT-Pro-B Natriuret Pep 743 H 11/25/18 11/25/18 11/25/18 13:59 19:15 19:15 Creatine Kinase 38 L CK-MB (CK-2) 0.28 0.40 Troponin I < 0.012 0.013 NT-Pro-B Natriuret Pep 11/26/18 11/26/18 01:07 01:07 Creatine Kinase 36 L CK-MB (CK-2) 0.33 Troponin I 0.016 NT-Pro-B Natriuret Pep Impressions: Chest X-Ray 11/25/18 09:01 IMPRESSION: COPD. NO ACUTE RADIOGRAPHIC FINDING IN THE CHEST. Assessment & Plan - Diagnosis (1) Sepsis Qualifiers: Sepsis type: sepsis due to unspecified organism Sepsis acute organ dysfunction status: with acute organ dysfunction Severe sepsis acute organ dysfunction type: acute renal failure Acute renal failure type: with other specified pathological lesion Severe sepsis shock status: with septic shock Qualified Code(s): A41.9 - Sepsis, unspecified organism; R65.21 - Severe sepsis with septic shock; N17.8 - Other acute kidney failure Is this a current diagnosis for this admission?: Yes Plan: Continue present treatment patient responding (2) Hypotension Qualifiers: Hypotension type: unspecified hypotension type Qualified Code(s): I95.9 - Hypotension, unspecified Is this a current diagnosis for this admission?: Yes (3) Acute kidney injury Is this a current diagnosis for this admission?: Yes (4) Hypoalbuminemia Is this a current diagnosis for this admission?: Yes (5) Arthropathy of knee Is this a current diagnosis for this admission?: Yes Plan: Give colchicine 1.2 mg 1 dose, Solu-Medrol 40 mg 1 dose, MRI of the knee ordered (6) Urinary tract infection Qualifiers: Urinary tract infection type: site unspecified Hematuria presence: without hematuria Qualified Code(s): N39.0 - Urinary tract infection, site not specified Is this a current diagnosis for this admission?: Yes Plan: Urine culture gram-negative rods, continue IV antibiotic
[2018-11-26] MEDS: RINGERS SOLUTION,LACTATED 1,000 ML IV PRN (15:11)
--- NOTE | 2018-11-26 15:46 | RADIOLOGY REPORT (SQ) ---
EXAM DESCRIPTION: MRI LT LOWER JOINT WITHOUT COMPLETED DATE/TIME: 11/26/2018 2:13 pm REASON FOR STUDY: left knee pain and swelling ,MRI of left knee COMPARISON: None. TECHNIQUE: Leftknee images acquired and stored on PACS. Multiplanar images include fat sensitive se quences as T1, water sensitive sequences as FST2 or STIR, cartilage sensitive sequences as FSPD, and gradient echo sequences. LIMITATIONS: Patient motion. FINDINGS: JOINT AND BURSAE: Small effusion. BONE CORTEX AND MARROW: No alteration of signal to suggest marrow replacement. No worrisome bone lesi ons. No occult fracture. ACL: Intact. No degeneration or ganglion cyst. PCL: Intact. MCL: Intact. No periligamentous edema or fluid. LCL: Intact. No periligamentous edema or fluid. MEDIAL MENISCUS: Attenuated. Very little normal meniscal tissue present. LATERAL MENISCUS: Intact. MEDIAL COMPARTMENT: Moderate osteophytes. No subchondral edema. LATERAL COMPARTMENT: Mild osteophytes. No subchondral edema. PATELLA: Mild osteophytes. No subchondral edema. EXTENSOR MECHANISM: Increased T2 signal in the patellar tendon just inferior to the patella. SOFT TISSUES: Prepatellar subcutaneous inflammation. No organized bursal fluid collection. Small Ba ker cyst. OTHER: No other significant finding. IMPRESSION: 1. 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 No organized bursal fluid collectio n. 2. Chronic medial meniscal tear. 3. 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 4. Joint effusion. 5. Small Zhao's cyst. TECHNICAL DOCUMENTATION: JOB ID: [id number] nat[employer]- All Rights Reserved Reading location - IP/workstation name: [email or web address]
[2018-11-26] MEDS: DOXAZOSIN MESYLATE 4 MG TABLET PO SCH (17:15)
[2018-11-26] MEDS: SIMVASTATIN 40 MG TABLET PO SCH (21:00)
[2018-11-26] MEDS: LATANOPROST 0.005% OPH SOLN 2.5 ML OU SCH (21:01)
[2018-11-27] MEDS: MECLIZINE HCL 25 MG TABLET PO SCH ×5 (00:49→21:00)
[2018-11-27] MEDS: HEPARIN SOD (PORCINE) 5,000 UNIT/ML 1 ML VIAL SUBCUT SCH ×3 (05:22→21:00)
[2018-11-27 06:08] LABS: ALBUMIN 2.7 g/dL (3.5-5.0); ALKALINE PHOSPHATASE 96 U/L (38-126); ASPARTATE AMINO TRANSFERASE 19 U/L (17-59); BILIRUBIN,DIRECT 0.3 mg/dL (0.0-0.4); BILIRUBIN,TOTAL 0.4 mg/dL (0.2-1.3); TOTAL PROTEIN 5.3 g/dL (6.3-8.2)
[2018-11-27] MEDS: ASPIRIN/DIPYRIDAMOLE 25-200 MG 1 CAP.SR CPMP.12HR PO SCH ×2 (10:10→21:00)
[2018-11-27] MEDS: CEFEPIME HCL 2 GM in DEXTROSE 5%-WATER 50 ML IV SCH ×2 (10:10→21:00)
[2018-11-27] MEDS: COLCHICINE 0.6 MG TABLET PO SCH ×2 (10:10→21:00)
[2018-11-27] MEDS: TIOTROPIUM BROMIDE DPI 5 CAP/KIT (18 MCG/CAP) IH SCH (10:10)
[2018-11-27] MEDS: FLUTICASONE/VILANTEROL 200-25 MCG/DOSE IH SCH (10:10)
[2018-11-27] MEDS: PANTOPRAZOLE SODIUM 20 MG TABLET.DR PO SCH (10:10)
[2018-11-27] MEDS: ALLOPURINOL 100 MG TABLET PO SCH ×2 (10:10→17:22)
--- NOTE | 2018-11-27 10:54 | PDOC PROGRESS REPORT ---
Subjective Progress Note for:: 11/27/18 Subjective:: Patient still complaint about left knee pain and related history of gout arthropathy. No recent fall, trauma, or instrumentation to the left knee joint. continue to ambulate on the floor. Remain on IV fluid support and antibiotic therapy. Reason For Visit: SEPSIS,HYPOTENSION,UTI Physical Exam Vital Signs: Temp Pulse Resp BP Pulse Ox 97.4 F 30 L 20 139/52 H 95 11/27/18 03:52 11/27/18 03:52 11/27/18 03:52 11/27/18 03:52 11/27/18 03:52 Intake & Output 11/26/18 11/27/18 11/28/18 06:59 06:59 06:59 Intake Total 2510 870 Output Total 125 875 Balance 2385 -5 Weight 96.5 kg 95.8 kg General appearance: PRESENT: no acute distress Head exam: PRESENT: atraumatic, normocephalic Eye exam: PRESENT: conjunctiva pink. ABSENT: scleral icterus Ear exam: PRESENT: normal external ear exam Mouth exam: PRESENT: moist Respiratory exam: PRESENT: clear to auscultation jenny Cardiovascular exam: PRESENT: RRR, +S1, +S2. ABSENT: diastolic murmur, systolic murmur Vascular exam: ABSENT: pallor GI/Abdominal exam: PRESENT: normal bowel sounds, soft. ABSENT: distended, guarding, mass, organolmegaly, rebound, tenderness Extremities exam: ABSENT: pedal edema Musculoskeletal exam: PRESENT: tenderness - left knee joint to AROM and palpation Neurological exam: PRESENT: alert, awake, oriented to person, oriented to place, oriented to time, oriented to situation, CN II-XII grossly intact. ABSENT: motor sensory deficit Skin exam: PRESENT: dry, erythema - anterior aspect of left knee joint, warm Results Laboratory Results: 11/26/18 07:37 11/26/18 07:37 11/27/18 05:18 Total Bilirubin 0.4 AST 19 Alkaline Phosphatase 96 Total Protein 5.3 L Albumin 2.7 L 11/25/18 11/25/18 11/25/18 09:22 09:22 13:59 Creatine Kinase 32 L CK-MB (CK-2) Troponin I < 0.012 NT-Pro-B Natriuret Pep 743 H 11/25/18 11/25/18 11/25/18 13:59 19:15 19:15 Creatine Kinase 38 L CK-MB (CK-2) 0.28 0.40 Troponin I < 0.012 0.013 NT-Pro-B Natriuret Pep 11/26/18 11/26/18 01:07 01:07 Creatine Kinase 36 L CK-MB (CK-2) 0.33 Troponin I 0.016 NT-Pro-B Natriuret Pep Impressions: Chest X-Ray 11/25/18 09:01 IMPRESSION: COPD. NO ACUTE RADIOGRAPHIC FINDING IN THE CHEST. Lower Extremity MRI 11/26/18 00:00 IMPRESSION: 1. 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 No organized bursal fluid collection. 2. Chronic medial meniscal tear. 3. 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 4. Joint effusion. 5. Small Zhao's cyst. Assessment & Plan - Diagnosis (1) Sepsis Qualifiers: Sepsis type: sepsis due to unspecified organism Sepsis acute organ dysfunction status: with acute organ dysfunction Severe sepsis acute organ dysfunction type: acute renal failure Acute renal failure type: with other sp ecified pathological lesion Severe sepsis shock status: with septic shock Qualified Code(s): A41.9 - Sepsis, unspecified organism; R65.21 - Severe sepsis with septic shock; N17.8 - Other acute kidney failure Is this a current diagnosis for this admission?: Yes Plan: Continue IV Cefepime coverage. (2) UTI (urinary tract infection) Qualifiers: Urinary tract infection type: site unspecified Hematuria presence: with he maturia Qualified Code(s): N39.0 - Urinary tract infection, site not spec ified; R31.9 - Hematuria, unspecified Is this a current diagnosis for this admission?: Yes Plan: Continue IV Cefepime coverage. (3) Arthropathy of knee Is this a current diagnosis for this admission?: Yes Plan: Continue Allopurinol and Colchicine therapy. (4) Chronic obstructive pulmonary disease Qualifiers: Emphysema type: unspecified Is this a current diagnosis for this admission?: Yes Plan: Continue current medication management. - Time Time Spent with patient: 25-34 minutes Medications reviewed and adjusted accordingly: Yes Anticipated discharge: Home with Homehealth Within: Other - Inpatient Certification Based on my medical assessment, after consideration of the patient's comorbidities, presenting symptoms, or acuity I expect that the services needed warrant INPATIENT care.: Yes I certify that my determination is in accordance with my understanding of Medicare's requirements for reasonable and necessary INPATIENT services [42 CFR 412.3e].: Yes Medical Necessity: Significant Comorbidiites Make Outpatient Treatment Too Risky, Need Close Monitoring Due to Risk of Patient Decompensation, Need For IV Fluids, Need For Continuous Telemetry Monitoring, Need for IV Antibiotics, Risk of Complication if Not Cared For in Hospital, Risk of Diagnosis Which Will Require Inpatient Eval/Care/Monitoring 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 Obtain serum uric acid level.
[2018-11-27] MEDS: RINGERS SOLUTION,LACTATED 1,000 ML IV PRN ×2 (11:54→13:06)
[2018-11-27] MEDS: DOXAZOSIN MESYLATE 4 MG TABLET PO SCH (17:22)
[2018-11-27] MEDS: SIMVASTATIN 40 MG TABLET PO SCH (21:00)
[2018-11-27] MEDS: LATANOPROST 0.005% OPH SOLN 2.5 ML OU SCH (21:00)
[2018-11-27] MEDS: TRAMADOL HCL 50 MG TABLET PO PRN (21:00)
[2018-11-28] MEDS: MECLIZINE HCL 25 MG TABLET PO SCH ×3 (05:09→17:48)
[2018-11-28] MEDS: HEPARIN SOD (PORCINE) 5,000 UNIT/ML 1 ML VIAL SUBCUT SCH ×3 (05:09→22:02)
[2018-11-28 07:56] LABS: ALBUMIN 2.8 g/dL (3.5-5.0); ALKALINE PHOSPHATASE 84 U/L (38-126); ASPARTATE AMINO TRANSFERASE 21 U/L (17-59); BILIRUBIN,DIRECT 0.3 mg/dL (0.0-0.4); BILIRUBIN,TOTAL 0.3 mg/dL (0.2-1.3); TOTAL PROTEIN 5.3 g/dL (6.3-8.2)
[2018-11-28] MEDS: RINGERS SOLUTION,LACTATED 1,000 ML IV PRN ×2 (10:13→22:10)
[2018-11-28] MEDS: CEFEPIME HCL 2 GM in DEXTROSE 5%-WATER 50 ML IV SCH ×2 (10:13→22:02)
[2018-11-28] MEDS: FLUTICASONE/VILANTEROL 200-25 MCG/DOSE IH SCH (10:15)
[2018-11-28] MEDS: TIOTROPIUM BROMIDE DPI 5 CAP/KIT (18 MCG/CAP) IH SCH (10:15)
[2018-11-28] MEDS: PANTOPRAZOLE SODIUM 20 MG TABLET.DR PO SCH (10:18)
[2018-11-28] MEDS: COLCHICINE 0.6 MG TABLET PO SCH ×2 (10:18→22:02)
[2018-11-28] MEDS: ALLOPURINOL 100 MG TABLET PO SCH ×2 (10:18→17:48)
[2018-11-28] MEDS: ASPIRIN/DIPYRIDAMOLE 25-200 MG 1 CAP.SR CPMP.12HR PO SCH ×2 (10:18→22:02)
--- NOTE | 2018-11-28 12:22 | PDOC PROGRESS REPORT ---
Subjective Progress Note for:: 11/28/18 Subjective:: Patient complain about lack of bowel movement x 4 days. No nausea, vomiting or abdominal pain. No chest pain or difficulty with breathing. Reason For Visit: SEPSIS,HYPOTENSION,UTI Physical Exam Vital Signs: Temp Pulse Resp BP Pulse Ox 97.5 F 72 18 164/80 H 96 11/28/18 08:16 11/28/18 08:16 11/28/18 08:16 11/28/18 08:16 11/28/18 08:16 Intake & Output 11/27/18 11/28/18 11/29/18 06:59 06:59 06:59 Intake Total 1870 2297 50 Output Total 875 1925 Balance 995 372 50 Weight 95.8 kg 95 kg Physical Exam: General appearance: PRESENT: no acute distress Head exam: PRESENT: atraumatic, normocephalic Eye exam: PRESENT: conjunctiva pink. ABSENT: pallor, scleral icterus Ear exam: PRESENT: normal external ear exam Mouth exam: PRESENT: moist Respiratory exam: PRESENT: clear to auscultation jenny Cardiovascular exam: PRESENT: RRR, +S1, +S2. ABSENT: diastolic murmur, systolic murmur GI/Abdominal exam: PRESENT: normal bowel sounds, soft. ABSENT: distended, guarding, mass, organomegaly, rebound, tenderness Extremities exam: ABSENT: pedal edema Musculoskeletal exam: PRESENT: improved left knee tenderness Neurological exam: PRESENT: alert, awake, oriented to person, oriented to place, oriented to time, oriented to situation, CN II-XII grossly intact. ABSENT: motor sensory deficit Skin exam: PRESENT: dry, erythema - anterior aspect of left knee joint, warm Results Laboratory Results: 11/26/18 07:37 11/26/18 07:37 11/28/18 11/28/18 05:08 07:09 Total Bilirubin Cancelled 0.3 AST Cancelled 21 Alkaline Phosphatase Cancelled 84 Total Protein Cancelled 5.3 L Albumin Cancelled 2.8 L 11/25/18 11/25/18 11/25/18 09:22 09:22 13:59 Creatine Kinase 32 L CK-MB (CK-2) Troponin I < 0.012 NT-Pro-B Natriuret Pep 743 H 11/25/18 11/25/18 11/25/18 13:59 19:15 19:15 Creatine Kinase 38 L CK-MB (CK-2) 0.28 0.40 Troponin I < 0.012 0.013 NT-Pro-B Natriuret Pep 11/26/18 11/26/18 01:07 01:07 Creatine Kinase 36 L CK-MB (CK-2) 0.33 Troponin I 0.016 NT-Pro-B Natriuret Pep Impressions: Chest X-Ray 11/25/18 09:01 IMPRESSION: COPD. NO ACUTE RADIOGRAPHIC FINDING IN THE CHEST. Lower Extremity MRI 11/26/18 00:00 IMPRESSION: 1. 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 No organized bursal fluid collection. 2. Chronic medial meniscal tear. 3. 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 4. Joint effusion. 5. Small Zhao's cyst. Assessment & Plan - Diagnosis (1) Sepsis Qualifiers: Sepsis type: sepsis due to unspecified organism Sepsis acute organ dysfunction status: with acute organ dysfunction Severe sepsis acute organ dysfunction type: acute renal failure Acute renal failure type: with other specified pathological lesion Severe sepsis shock status: with septic shock Qualified Code(s): A41.9 - Sepsis, unspecified organism; R65.21 - Severe sepsis with septic shock; N17.8 - Other acute kidney failure Is this a current diagnosis for this admission?: Yes (2) UTI (urinary tract infection) Qualifiers: Urinary tract infection type: site unspecified Hematuria presence: with hematuria Qualified Code(s): N39.0 - Urinary tract infection, site not specified; R31.9 - Hematuria, unspecified Is this a current diagnosis for this admission?: Yes (3) Arthropathy of knee Is this a current diagnosis for this admission?: Yes (4) Chronic obstructive pulmonary disease Qualifiers: Emphysema type: unspecified Is this a current diagnosis for this admission?: Yes (5) Constipation Qualifiers: Constipation type: unspecified constipation type Qualified Code(s): K59.00 - Constipation, unspecified Is this a current diagnosis for this admission?: Yes Plan: Start on Colace 200mg p.o qhs. Dulcolax 10 mg MO x 1 dose now. - Time Time Spent with patient: 25-34 minutes Medications reviewed and adjusted accordingly: Yes Anticipated discharge: Home with Homehealth Within: Other - Inpatient Certification Based on my medical assessment, after consideration of the patient's comorbidities, presenting symptoms, or acuity I expect that the services needed warrant INPATIENT care.: Yes I certify that my determination is in accordance with my understanding of Medicare's requirements for reasonable and necessary INPATIENT services [42 CFR 412.3e].: Yes Medical Necessity: Significant Comorbidiites Make Outpatient Treatment Too Risky, Need Close Monitoring Due to Risk of Patient Decompensation, Need For IV Fluids, Need For Continuous Telemetry Monitoring, Need for IV Antibiotics, Risk of Complication if Not Cared For in Hospital, Risk of Diagnosis Which Will Require Inpatient Eval/Care/Monitoring Post Hospital Care: D/C Effervescent Salts Compounder Documentation - Plan Summary Plan Summary: Continue current medication management. Start on Colace 200 mg p.o qhs and Dulcolax 10 mg p.o x 1 dose.
[2018-11-28] MEDS ORDERED: BISACODYL 10 MG SUPP.RECT PR ONE (13:00)
[2018-11-28] MEDS: DOXAZOSIN MESYLATE 4 MG TABLET PO SCH (17:48)
[2018-11-28] MEDS: DOCUSATE SODIUM 100 MG CAPSULE PO SCH (22:02)
[2018-11-28] MEDS: SIMVASTATIN 40 MG TABLET PO SCH (22:02)
[2018-11-28] MEDS: LATANOPROST 0.005% OPH SOLN 2.5 ML OU SCH (22:11)
[2018-11-29] MEDS: MECLIZINE HCL 25 MG TABLET PO SCH ×4 (01:30→17:27)
[2018-11-29] MEDS: HEPARIN SOD (PORCINE) 5,000 UNIT/ML 1 ML VIAL SUBCUT SCH ×3 (06:01→21:05)
[2018-11-29] MEDS: RINGERS SOLUTION,LACTATED 1,000 ML IV PRN (08:56)
[2018-11-29] MEDS: CEFEPIME HCL 2 GM in DEXTROSE 5%-WATER 50 ML IV SCH ×2 (11:02→21:07)
[2018-11-29] MEDS: COLCHICINE 0.6 MG TABLET PO SCH ×2 (11:02→21:07)
[2018-11-29] MEDS: PANTOPRAZOLE SODIUM 20 MG TABLET.DR PO SCH (11:02)
[2018-11-29] MEDS: TIOTROPIUM BROMIDE DPI 5 CAP/KIT (18 MCG/CAP) IH SCH (11:03)
[2018-11-29] MEDS: ALLOPURINOL 100 MG TABLET PO SCH ×2 (11:03→17:27)
[2018-11-29] MEDS: FLUTICASONE/VILANTEROL 200-25 MCG/DOSE IH SCH (11:03)
[2018-11-29] MEDS: ASPIRIN/DIPYRIDAMOLE 25-200 MG 1 CAP.SR CPMP.12HR PO SCH ×2 (11:03→21:07)
[2018-11-29] MEDS: DOXAZOSIN MESYLATE 4 MG TABLET PO SCH (17:27)
[2018-11-29 19:48] LABS: ABSOLUTE EOSINOPHILS # (AUTO) 0.4 10^3/uL (0.0-0.6); ABSOLUTE LYMPHOCYTES (AUTO) 1.8 10^3/uL (0.5-4.7); ABSOLUTE MONOCYTES (AUTO) 0.7 10^3/uL (0.1-1.4); BASOPHILS % (AUTO) 0.7 % (0-2); EOSINOPHILS % (AUTO) 5.5 % (0-6); HEMATOCRIT 34.2 % (37.9-51.0); HEMOGLOBIN 11.4 g/dL (13.5-17.0); LYMPHOCYTES % (AUTO) 26.3 % (13-45); MEAN CORPUSCULAR HEMOGLOBIN 33.5 pg (27.0-33.4); MEAN CORPUSCULAR HGB CONC 33.2 g/dL (32.0-36.0); MEAN CORPUSCULAR VOLUME 101 fl (80-97); MONOCYTES % (AUTO) 9.8 % (3-13); PLATELET COUNT 117 10^3/uL (150-450); RED CELL DISTRIBUTION WIDTH 15.1 % (11.5-14.0); SEGMENTED NEUTROPHILS % (AUTO) 57.7 % (42-78); TOTAL CELLS COUNTED % (AUTO) 100 %
[2018-11-29 20:06] LABS: ALBUMIN 3.2 g/dL (3.5-5.0); ALKALINE PHOSPHATASE 104 U/L (38-126); ANION GAP 14 (5-19); ASPARTATE AMINO TRANSFERASE 33 U/L (17-59); BILIRUBIN,DIRECT 0.2 mg/dL (0.0-0.4); BILIRUBIN,TOTAL 0.4 mg/dL (0.2-1.3); BLOOD UREA NITROGEN 16 mg/dL (7-20); CALCIUM 8.7 mg/dL (8.4-10.2); CARBON DIOXIDE 19 mmol/L (22-30); CHLORIDE 104 mmol/L (98-107); GLUCOSE 83 mg/dL (75-110); POTASSIUM 3.7 mmol/L (3.6-5.0); TOTAL PROTEIN 5.9 g/dL (6.3-8.2)
[2018-11-29] MEDS: LATANOPROST 0.005% OPH SOLN 2.5 ML OU SCH (21:07)
[2018-11-29] MEDS: DOCUSATE SODIUM 100 MG CAPSULE PO SCH (21:08)
[2018-11-29] MEDS: SIMVASTATIN 40 MG TABLET PO SCH (21:08)
--- NOTE | 2018-11-29 22:06 | PDOC DISCHARGE SUMMARY ---
General - Admit/Disc Date/PCP Admission Date/Primary Care Provider: 11/25/18 11:58 BROCK GRAVES MD Discharge Date: 11/29/18 - Discharge Diagnosis (1) Sepsis Is this a current diagnosis for this admission?: Yes (2) Hypotension Is this a current diagnosis for this admission?: Yes (3) Acute kidney injury Is this a current diagnosis for this admission?: Yes (4) Hypoalbuminemia Is this a current diagnosis for this admission?: Yes (5) Arthropathy of knee Is this a current diagnosis for this admission?: Yes (6) Urinary tract infection Is this a current diagnosis for this admission?: Yes (7) E. coli UTI Is this a current diagnosis for this admission?: Yes - Additional Information Discharge Diet: As Tolerated Discharge Activity: Activity As Tolerated Home Medications: Simvastatin [Zocor 40 mg Tablet] 40 mg PO QHS 09/18/11 Latanoprost [Xalatan 0.005% Oph Soln 2.5 ml] 1 drop OU QHS 09/22/11 Fluticasone/Salmeterol [Advair 250-50 Diskus 28 dose] 1 inh IH Q12 09/27/14 Tiotropium Hutchinson [Spiriva Handihaler 18 mcg/dose (30 Dose)] 1 cap IH DAILY 09/27/14 Aspirin/Dipyridamole [Aggrenox 25 mg/200 mg Capsule SA] 1 cap.sr PO Q12 06/17/17 Cyanocobalamin (Vitamin B-12) [Vitamin B12] 1,000 mcg INJ .MONTHLY 06/17/17 Doxazosin Mesylate 4 mg PO QPM 06/17/17 Meclizine HCl 25 mg PO Q6 06/17/17 Tramadol HCl [Ultram 50 mg Tablet] 50 mg PO Q6HP PRN tablet 08/24/17 Allopurinol [Zyloprim 100 mg Tablet] 100 mg PO BID 11/25/18 Omeprazole 20 mg PO DAILY 11/25/18 History of Present Illness History of Present Illness: SARMAD DURON is a 87 year old male, he came to the emergency room for evaluation of generalized weakness, dizziness, he has not been able to get out of bed. He also complained of bilateral knee pain, the left side is more than the right side. He was transferred from home to the emergency room by EMS, the EMS stated that he was very hypotensive at home, the blood pressure recorded was 70 systolic, the the dipstick urinalysis was grossly abnormal consistent with UTI, there was elevated serum lactic acid. The serum creatinine is 1.43, he has underlining chronic obstructive pulmonary disease, history of CVA, arterial blood gas on ambient air, pH 7.45, PCO2 26, PO2 82.8, bicarbonate 17.8. Hospital Course Hospital Course: Patient was admitted for the management of sepsis due to E. coli UTI, hypotension, acute gouty arthropathy of the knee. The UTI was empirically treated with IV antibiotics cefepime, the urine culture grew E. coli pansensi tive to all organisms. On admission the blood pressure was quite low this was treated with IV fluid, patient responded to IV fluid therapy. He also had acute gout, this was treated with colchicine with improvement he also had a dose of glucocorticoid with improvement.There was associated acute kidney injury that improved with hydration suggesting prerenal azotemia. Physical Exam Vital Signs: Temp Pulse Resp BP Pulse Ox 97.5 F 85 18 155/66 H 97 11/29/18 17:55 11/29/18 19:00 11/29/18 17:55 11/29/18 17:55 11/29/18 17:55 Intake & Output 11/28/18 11/29/18 11/30/18 06:59 06:59 06:59 Intake Total 2297 2280 2891 Output Total 1925 1000 Balance 372 1280 2891 Weight 95 kg 94.2 kg General appearance: PRESENT: no acute distress Eye exam: PRESENT: PERRLA Respiratory exam: PRESENT: clear to auscultation jenny Cardiovascular exam: PRESENT: +S1, +S2 GI/Abdominal exam: PRESENT: soft Neurological exam: PRESENT: alert, CN II-XII grossly intact Results Laboratory Results: 11/29/18 19:08 11/29/18 19:08 11/29/18 11/29/18 19:08 19:08 WBC 7.0 RBC 3.40 L Hgb 11.4 L Hct 34.2 L MCV 101 H MCH 33.5 H MCHC 33.2 RDW 15.1 H Plt Count 117 L Seg Neutrophils % 57.7 Sodium 136.9 L Potassium 3.7 Chloride 104 Carbon Dioxide 19 L Anion Gap 14 BUN 16 Creatinine 1.15 Est GFR ( Amer) > 60 Glucose 83 Calcium 8.7 Total Bilirubin 0.4 AST 33 Alkaline Phosphatase 104 Total Protein 5.9 L Albumin 3.2 L 11/25/18 11/25/18 11/25/18 09:22 09:22 13:59 Creatine Kinase 32 L CK-MB (CK-2) Troponin I < 0.012 NT-Pro-B Natriuret Pep 743 H 11/25/18 11/25/18 11/25/18 13:59 19:15 19:15 Creatine Kinase 38 L CK-MB (CK-2) 0.28 0.40 Troponin I < 0.012 0.013 NT-Pro-B Natriuret Pep 11/26/18 11/26/18 01:07 01:07 Creatine Kinase 36 L CK-MB (CK-2) 0.33 Troponin I 0.016 NT-Pro-B Natriuret Pep Impressions: Chest X-Ray 11/25/18 09:01 IMPRESSION: COPD. NO ACUTE RADIOGRAPHIC FINDING IN THE CHEST. Lower Extremity MRI 11/26/18 00:00 IMPRESSION: 1. 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 No organized bursal fluid collection. 2. Chronic medial meniscal tear. 3. Degenerative joint disease, more advanced in the medial and patellofemoral co mpartments. 4. Joint effusion. 5. Small Zhao's cyst. Qualifiers - * PATIENT BEING DISCHARGED WITH ANY OF THE FOLLOWING DIAGNOSIS: No VTE patient discharged on overlapping Therapy?: No Reason(s) for not prescribing Overlap Therapy:: Not indicated Stroke Pt being discharged on Anti-thrombolytic therapy?: No Reason(s) for not prescribing Anti-thrombolytic therapy:: Not indicated Stroke Pt being discharged on Anti-coagulation therapy?: No Reason(s) for not prescribing Anti-coagulation therapy:: Not indicated Stroke Pt being discharged on Statins?: No Reason(s) for not prescribing Statins therapy:: Not indicated [place] Pt being discharged on Aspirin therapy?: No Reason(s) for not prescribing Aspirin therapy:: Not indicated [place] Pt being discharged on Statins?: No Reason(s) for not prescribing Statin therapy:: Not indicated [place] Pt discharged ACEI/ARBS?: No Reason(s) for not prescribing ACEI/ARBS:: Not indicated Acute Heart Failure - Is this a Heart Failure Patient?: No Follow-up Appointment scheduled within 7 days?: Yes
[2018-11-30] MEDS: MECLIZINE HCL 25 MG TABLET PO SCH ×2 (00:14→05:42)
[2018-11-30] MEDS: HEPARIN SOD (PORCINE) 5,000 UNIT/ML 1 ML VIAL SUBCUT SCH (05:42)
[2018-11-30 08:22] VITALS: BP 132/68
[2018-12-21] MEDS ORDERED: CYANOCOBALAMIN (VITAMIN B-12) INJ 1000 MCG/1 ML VIAL IM SCH (10:00)
== END 2018-11-30 09:02 | disposition home or self-care (01) | DRG 871 ==
LOC: ER 08:49 → EH 11:58 → 3W 14:56
PROVIDERS: ADMIT Internal Medicine; ATTEND Internal Medicine
DX: A41.9 Sepsis, unspecified organism (principal); R65.21 Severe sepsis with septic shock; N17.9 Acute kidney failure, unspecified; B96.20 Unspecified Escherichia coli [E. coli] as the cause of diseases classified elsewhere; J43.9 Emphysema, unspecified; E78.5 Hyperlipidemia, unspecified; K59.00 Constipation, unspecified; I10 Essential (primary) hypertension; Z85.46 Personal history of malignant neoplasm of prostate; Z85.828 Personal history of other malignant neoplasm of skin; Z87.891 Personal history of nicotine dependence; Z91.013 Allergy to seafood; Z86.73 Personal history of transient ischemic attack (TIA), and cerebral infarction without residual deficits; M1A.9XX0 Chronic gout, unspecified, without tophus (tophi)
CPT/HCPCS: 36415; 71045; 80053; 80061; 80076; 80307; 81001; 82140; 82150; 82550; 82553; 82803; 82962; 83036; 83605; 83690; 83735; 83880; 84100; 84439; 84443; 84484; 85025; 85610; 87040; 87086; 87088; 87186; 93005; 93010; 96361; 96365; 99284; J0692; J1644; J2920; J3475; J3490; J7030; J7060; J7120